=== PATIENT | male | born 1935 | race Caucasian/White ===

== ENCOUNTER → 2018-01-28 10:26 | Outpatient (CLI) | payer MEDICARE, SELFPAY ==
--- NOTE | 2018-01-28 10:29 | CT_ITS ---
STUDY: CT ABDOMEN AND PELVIS WITHOUT CONTRAST REASON FOR EXAM: Male, 82 years old. Hypertension RADIATION DOSAGE (If Supplied By Facility): CTDIvol = ( 8.08 ) mGy, DLP = ( 377.63 ) mGycm TECHNIQUE: Transaxial images were obtained from the dome of the diaphragm to the symphysis pubis without oral contrast, and without intravenous contrast. Sagittal and coronal images were reconstructed. Individualized dose optimization techniques were used for this CT. COMPARISON: None. FINDINGS: There is dependent atelectasis versus scar at bilateral lung bases. The visualized portions of the heart are within normal limits. Normal liver. Normal gallbladder and extrahepatic biliary system. Normal spleen. Normal pancreas. Normal bilateral adrenal glands. Normal right kidney. Calcifications within the left renal pelvis measuring up to 6 mm. No hydronephrosis. Normal ureters. Normal visualized stomach. Normal small intestine. Diverticular disease of the descending and sigmoid colonic segments without inflammation. The appendix is visualized and appears normal. Mild atherosclerotic calcification of the abdominal vasculature. Normal inferior vena cava. Normal retroperitoneum. Normal urinary bladder. Mild prostatomegaly. Normal abdominal wall. There are diffuse degenerative changes of the visualized lumbar spine. CT/Abdomen/Pelvis without Cont IMPRESSION: 1. Nonobstructing left renal calculi measuring up to 6 mm. 2. Descending and sigmoid colonic diverticulosis with no CT evidence of acute diverticulitis. Electronically Signed: Aidan Vogel MD at 11:37 EDT Tel , Service support ,
== END ==
PROVIDERS: Family Provider Family Medicine; PCP Nurse Practitioner Family; Visit Provider Urology
DX: N20.0 Calculus of kidney (principal)
CPT/HCPCS: 74176

== ENCOUNTER 2018-02-08 08:12 | Day surgery (SDC) | payer MEDICARE, SELFPAY ==
[2018-02-08 08:44] VITALS: BP 131/73; PULSE 65; RESP 18; TEMP 36.3; O2SAT 98; BMI 24.3
--- NOTE | 2018-02-08 09:50 | RAD_ITS ---
STUDY: X-RAY - ABDOMEN/PELVIS REASON FOR EXAM: Male, 82 years old. Pre-ESWL. TECHNIQUE: Two AP supine views of the abdomen and pelvis. COMPARISON: None. FINDINGS: Normal visualized lung bases. There is a moderate amount of colonic fecal material. Limited evaluation of the left kidney due to overlying fecal material. There are calcified phleboliths in the pelvis. There are diffuse degenerative changes of the visualized lumbar spine. RAD/Abdomen Single View IMPRESSION: Moderate amount of fecal material is seen in the colon. Limited assessment of the left kidney due to overlying fecal material. Electronically Signed: Sergey Canchola MD at 10:12 EDT Tel [phone], Service support ,
[2018-02-08] MEDS: Cefazolin 2 GM in 0.9% Normal Saline 100 ML IV (11:38)
--- NOTE | 2018-02-08 12:24 | PCM.OPRPT ---
Report of Operation Date of Procedure: 02/08/18 Pre-Operative Diagnosis: Left kidney stones Post-Operative Diagnosis: The same Surgery/Procedure Performed:: Left extracorporeal shockwave lithotripsy Description of Surgical Findings:: 82-year-old male taken back to the operating room after smooth induction of general anesthesia he was placed supine on the table the stone in the upper pole of the left kidney was identified under fluoroscopy we used the movement of fluoroscopy to identify the stone of the lower pole stone seen on CAT scan was not visible on fluoroscopy. We then positioned the stone in the F2 focal point of the lithotripter machine and a total of 3000 shockwaves was delivered to the stone at a rate of initially 90 and then up to 120 at the end of the treatment cycle the stone had broken up fairly successfully did not see anything significant more fragments. Decided not to leave a stent. Patient's anesthetic was reversed and will see him back in a few weeks with an x-ray. Type of Anesthesia:: General Drains: none - Admit VTE Documentation VTE Present on Admission: No VTE Mechan Device Prophylaxis: SCD's VTE Pharm Prophylaxis ordered?: No
--- NOTE | 2018-02-08 12:27 | DCINST_ITS ---
Discharge Diet: No Restrictions Discharge Activity: Return to Normal Activity, May Not Drive - for 2 days. Additional Activity Instructions:: Please be aware that pain medications may cause nausea. You should typically eat light foods as you take your pain medication. Pain medication may cause constipation, if this is a problem for you, please discuss with your doctor. Allergies/Adverse Reactions: Allergies propoxyphene [From Darvon] Allergy (Verified 02/03/18 14:24) Unknown lisinopril Adverse Reaction (Unknown, Verified 02/03/18 14:24) Cough Medications to take at Discharge Carvedilol [Coreg] 6.25 mg PO BID 01/02/16 Multivitamins,Therapeutic [Multivitamin] 1 tab PO DAILY 01/02/16 tramadol 50 mg tablet 50 mg PO Q8H PRN tab 05/13/17 amlodipine 10 mg tablet 5 mg PO QDAY tab 11/15/17 cyanocobalamin (vit B-12) 1,000 mcg capsule 1,000 mcg PO QDAY 11/15/17 Primary Care Physician: Benito Reynolds, [employer] [Primary Care Provider] - Test Results: Test results from this visit will be discussed in further detail at your follow- up appointment, if applicable. Please Follow Up With: Jus Mims MD
[2018-02-08 12:35] VITALS: BP 131/73; BP 138/66; PULSE 61; RESP 16; TEMP 36.2; O2SAT 96
[2018-02-08 12:45] VITALS: BP 131/73; BP 133/53; PULSE 57; RESP 14; O2SAT 94
[2018-02-08] MEDS: Ketorolac 15 MG/ML Vial IV (12:47)
[2018-02-08 13:04] VITALS: BP 123/63; BP 131/73; PULSE 56; RESP 14; TEMP 36.9; O2SAT 94
[2018-02-08 13:50] VITALS: BP 131/73
== END 2018-02-08 14:05 | disposition home or self-care (01) ==
LOC: SDC 08:14 → AC 08:14
PROVIDERS: Family Provider Nurse Practitioner Family; PCP Nurse Practitioner Family; Visit Provider Urology
PROC: (CPT 50590; principal; 2018-02-08 11:00)
DX: N20.0 Calculus of kidney (principal); K59.00 Constipation, unspecified; Z87.891 Personal history of nicotine dependence
CPT/HCPCS: 50590; 74018; J7120; J2405

== ENCOUNTER 2018-02-17 09:45 | Emergency (ER) | payer MEDICARE, SELFPAY ==
[2018-02-17 09:47] VITALS: BP 163/92; PULSE 99; RESP 18; TEMP 36.8; O2SAT 98; BMI 21.2
--- NOTE | 2018-02-17 10:15 | ED.VISSUMM ---
- ER Visit Summary Date of Service: 02/17/18 Chief Complaint: Left flank pain History of Present Illness: The patient is a 82 M history of recent kidney stone. Underwent lithotripsy and a left ureteral stent. He sees Dr. Mims from urology. Patient states that he had left flank pain beginning last night now with nausea vomiting. He does have some bloody urine. But states he is able to urinate. Denies any fever. Is still having bowel movements. Physical Examination: Male no acute distress. Vital signs are stable. He is afebrile. He does not look septic or toxic. H EENT exam shows mildly dry mucous membranes. Neck nontender. Lungs clear to auscultation. Heart regular rhythm no murmur. Abdomen is soft. Nondistended. Normal bowel sounds. No hernias or masses. No signs of obstruction. No pulsatile mass. Is mild tenderness to left upper and left lower quadrants. Right upper right lower quadrant unremarkable. There are no peritoneal signs. He is moving all 4 extremities. They are neurovascularly intact. Calves are nontender. Back he has mild left CVA tenderness. Neurologically is awake and alert with no focal motor deficits. Test Results: See normal. White count of 10. Hemoglobin 15. Electrolytes unremarkable. Gap of 10. Normal creatinine 1.1. UA 5-10 white cells. 100 red cells no bacteria no night rates. Sent for culture but is not to be started on any antibiotics at this time. KUB showed a left ureteral stent to be in good position otherwise was unremarkable. Emergency Department Course and Treatment:, Morphine and Zofran. Treatment Plan: Repeat exam patient is doing well at 1220. He is feeling much better after the medication. He and his are comfortable with him being discharged home. Disposition: Discharge Impression: Acute left flank pain secondary to ureteral stent. Nausea and vomiting Status post left ureteral calculi with lithotripsy and recent stent This note was generated with [employer] dictation software. It may contain incorrect words, spelling, and punctuation that were not noted in review of the chart prior to signing ED Disposition - Plan for ED Patient: Chief Complaint: Flank Pain Referrals: Benito Reynolds, [facility] [Primary Care Provider] -
[2018-02-17] MEDS: 0.9% Normal Saline 1,000 ML 1000 ML IV (10:36)
[2018-02-17] MEDS: Ondansetron 4 MG/2 ML Vial IV (10:37)
[2018-02-17] MEDS: Morphine 4 MG/ML Syringe 6 MG IV (10:37)
[2018-02-17 10:49] LABS: Bacteria 0 SEEN /hpf (None Seen); Mucous, Urine 0 SEEN /hpf (<or=2+); Squamous Epithelial Cells - UA 0 SEEN /hpf (0-5)
[2018-02-17 10:52] LABS: Color, Urine Red (Yellow); Glucose, Dipstick Normal (Normal); Ketone-Dipstick 50 mg/dl (Negative); Leukocyte Esterase-Dipstick 500 /ul (Negative); Nitrite-Dipstick Negative (Negative); Occult Blood-Urine 250 /ul (Negative); Protein-Dipstick 100 mg/dl (Negative); Specific Gravity, Urine 1.015 (1.002-1.030); Urine Bilirubin Dipstick Negative (Negative); Urine Clarity Cloudy (Clear); Urine Urobilinogen Normal (Normal)
[2018-02-17 10:58] LABS: Red Blood Cells-Urine > 100 SEEN /hpf (0-5)
[2018-02-17 10:59] LABS: White Blood Cells 5-10 SEEN /hpf (0-5)
--- NOTE | 2018-02-17 11:00 | RAD_ITS ---
STUDY: X-RAY - ABDOMEN/PELVIS REASON FOR EXAM: Male, 82 years old. recent left stent placed, pt. having left flank pain TECHNIQUE: Two AP supine views of the abdomen and pelvis. COMPARISON: None. FINDINGS: Normal visualized lung bases. There is a left ureter stent in good position. There is an unremarkable bowel gas pattern. There is no demonstrated free abdominal air. The visualized liver, spleen and kidneys are grossly normal in size and morphology. There are calcified phleboliths in the pelvis. Normal visualized osseous structures. RAD/Abdomen Single View IMPRESSION: There is a left ureter stent in good position. Electronically Signed: Jose Garcia MD at 11:19 EDT Tel , Service support ,
[2018-02-17 11:02] LABS: Absolute Lymphocyte Count 0.55 X10^3/ul (0.83-4.51); Absolute Neutrophil Count 9.2 X10^3/uL (2.0-7.7); BUN 12 mg/dL (7-18); Basophil# 0.01 X10^3/uL; Basophil% 0.1 % (0-1); Creatinine, Serum 1.11 mg/dL (0.70-1.30); Eosinophil# 0.04 X10^3/uL; Eosinophils% 0.4 % (0-5); Estimated Creatinine Clearance 51.67 ml/min; Glucose 142 mg/dL (74-106); Hematocrit 43.8 % (40-54); Hemoglobin 15.7 g/dl (13.0-16.5); Lymphocyte # 0.55 X10^3/ul (4.0); Lymphocyte % 5.2 % (19-41); Mean Corp Hgb Conc 35.8 g/gl (32-36); Mean Corpuscular Hgb 31.6 pg (27.0-32.0); Mean Corpuscular Volume 88.1 fL (80-94); Mean Platelet Vol. 9.4 fl (6.2-12.0); Monocyte# 0.82 X10^3/uL; Monocyte% 7.7 % (0-10); Neutrophil # 9.22 X10^3/uL (2.7-7.7); Neutrophil % 86.3 % (47-70); Platelet Count 163 K/mm3 (150-450); RBC Distribution Width CV 13.1 % (11.6-14.6); Red Blood Count 4.97 M/mm3 (4.6-6.2); White Blood Count 10.7 K/mm3 (4.4-11.0)
[2018-02-17 11:03] LABS: Anion Gap 10 (5-15); BUN/Creat Ratio 10.8 RATIO (10-20); Calcium,Total 9.3 mg/dL (8.5-10.1); Chloride 100 mmol/L (98-107); Differential Indicated SCAN CRITERIA MET; EST Glomerular Filtration Rate 67 mL/min (>60); Est Glom Filt Rate - Afr Amer 81 mL/min (>60); POSITIVE COUNT NO; POSITIVE DIFFERENTIAL YES; POSITIVE MORPHOLOGY NO; Potassium 3.9 mmol/L (3.5-5.1); Sodium Level 137 mmol/L (136-145)
--- NOTE | 2018-02-17 12:32 | ED.DEP ---
ED Disposition - Plan for ED Patient: Disposition: Home or Assisted Living Chief Complaint: Flank Pain Instructions: ED Stone Renal W Colic Referrals: Benito Reynolds, [employer] [Primary Care Provider] - 3-5 Days if not improving Additional Instructions: Money of fluids and rest. Continue your current medications. Return if intractable pain, fever or unable to urinate.
[2018-02-17 12:33] VITALS: BP 137/84; PULSE 98; RESP 16; O2SAT 95
== END 2018-02-17 12:52 | disposition home or self-care (01) ==
PROVIDERS: Emergency Provider Emergency Medicine; Family Provider Nurse Practitioner Family; PCP Nurse Practitioner Family
DX: R10.9 Unspecified abdominal pain (principal); R11.2 Nausea with vomiting, unspecified; Z87.442 Personal history of urinary calculi; Z98.890 Other specified postprocedural states; I10 Essential (primary) hypertension
CPT/HCPCS: 74018; 80048; 81001; 85025; 87086; 87088; 99284; J7030; J2405

== ENCOUNTER → 2018-02-28 12:54 | Outpatient (CLI) | payer MEDICARE, SELFPAY ==
--- NOTE | 2018-02-28 12:56 | RAD_ITS ---
STUDY: X-RAY - ABDOMEN/PELVIS REASON FOR EXAM: Male, 82 years old. Mid abdominal pain TECHNIQUE: Single AP view of the abdomen / pelvis. COMPARISON: 02/17/2018 FINDINGS: Previously identified left ureteral stent has been removed. There is an unremarkable bowel gas pattern. There is no demonstrated free abdominal air. The visualized liver, spleen and kidneys are grossly normal in size and morphology. Normal soft tissue structures. There are diffuse degenerative changes of the visualized lumbar spine. RAD/Abdomen Single View IMPRESSION: Previously identified left ureteral stent has been removed. No acute findings Electronically Signed: Ivan Espinosa DO at 12:00 EDT Tel , Service support ,
== END ==
PROVIDERS: Family Provider Nurse Practitioner Family; PCP Nurse Practitioner Family; Referring Provider Urology; Visit Provider Urology
DX: N20.0 Calculus of kidney (principal)
CPT/HCPCS: 74018

== ENCOUNTER → 2018-06-06 13:21 | Outpatient (CLI) | payer MEDICARE, SELFPAY ==
[2018-05-23 09:47] VITALS: BMI 21.9
--- NOTE | 2018-06-06 13:25 | RAD_ITS ---
STUDY: X-RAY - ABDOMEN/PELVIS REASON FOR EXAM: Male, 82 years old. Kidney calculus. Left-sided flank pain. TECHNIQUE: AP supine abdomen. COMPARISON: February 28, 2018. FINDINGS: There is an unremarkable bowel gas pattern. There is no demonstrated free abdominal air. The visualized liver, spleen and kidneys are grossly normal in size and morphology. Normal soft tissue structures. Degenerative changes of the lumbar spine. Calcifications in the inferior pelvis right greater than left probably compatible with phleboliths unchanged. RAD/Abdomen Single View IMPRESSION: Normal x-ray examination of the abdomen and pelvis. A left renal calculus is not identified. Electronically Signed: Avi Delgado MD at 7:57 EST , Service support ,
--- OUTSIDE RECORDS SUMMARY | 2018-08-08 17:42 | XMS RPT_ITS ---
:1935 Author Organization OHIP Support Name Relationship Address Phone JEFFREYHOLA Unavailable [address] + [place] [address] HOLA MURPHY Unavailable [address] + [place] [address] HOLA MURPHY Unavailable [address] + [place] [address] R Unavailable Unavailable Unavailable HOLA MURPHY Unavailable [address] + [place] [address] R Unavailable Unavailable Unavailable HOLA MURPHY Unavailable [address] + [place] [address] HOLA MURPHY Unavailable [address] + [place] [address] HOLA MURPHY Unavailable [address] + [place] [address] HOLA MURPHY Unavailable [address] + [place] [address] HOLA MURPHY Unavailable [address] + [place] [address] R Unavailable Unavailable Unavailable HOLA MURPHY Unavailable [address] + [place] [address] HOLA MURPHY Unavailable [address] + [place] [address] HOLA MURPHY Unavailable [address] + [place] [address] R Unavailable Unavailable Unavailable HOLA MURPHY Unavailable [address] + [place] [address] LEANN LAWRENCE Unavailable Unavailable + HOLA MURPHY Unavailable [address] + [place] [address] R Unavailable Unavailable Unavailable HOLA MURPHY Unavailable [address] + [place] [address] R Unavailable Unavailable Unavailable HOLA MURPHY Unavailable [address] + [place] [address] HOLA MURPHY Unavailable [address] + [place] [address] HOLA MURPHY Unavailable [address] + [place] [address] R Unavailable Unavailable Unavailable HOLA MURPHY Unavailable [address] + [place] [address] R Unavailable Unavailable Unavailable HOLA MURPHY Unavailable [address] + [place] [address] HOLA MURPHY Unavailable [address] + [place] [address] HOLA MURPHY Unavailable [address] + [place] [address] HOLA MURPHY Unavailable [address] + [place] [address] HOLA MURPHY Unavailable [address] + [place] [address] HOLA MURPHY Unavailable [address] + [place] [address] HOLA MURPHY Unavailable [address] + [place] [address] HOLA MURPHY Unavailable [address] + [place] [address] HOLA MURPHY Unavailable [address] + [place] [address] HOLA MURPHY Unavailable [address] + [place] [address] HOLA MURPHY Unavailable [address] + [place] [address] HOLA MURPHY Unavailable [address] + [place] [address] HOLA MURPHY Unavailable [address] + [place] [address] HOLA MURPHY Unavailable [address] + [place] [address] Care Team Providers Name Role Phone BENITO REYNOLDS CNP Primary Care Unavailable SHABBIR BENITO GARCÍA Attending Unavailable WASDEEDEE, ATEF Attending Unavailable SHABBIR BENITO GARCÍA Primary Care Unavailable WASEF, ATEF Attending Unavailable SHABBIR BENITO GARCÍA Primary Care Unavailable WASEF, ATEF Attending Unavailable SHABBIR BENITO GARCÍA Primary Care Unavailable WASEF, ATEF Attending Unavailable SHABBIR BENITO GARCÍA Primary Care Unavailable SHABBIR BENITO GARCÍA Attending Unavailable SHABBIR BENITO GARCÍA Primary Care Unavailable SHABBIR BENITO GARCÍA Attending Unavailable SHABBIR BENITO GARCÍA Primary Care Unavailable SHABBIR BENITO GARCÍA Attending Unavailable SHABBIR BENITO GARCÍA Primary Care Unavailable LAN JOHNSON, SUMI Waters Attending Unavailable SHABBIR BENITO GARCÍA Primary Care Unavailable SHABBIR BENITO GARCÍA Primary Care Unavailable JUS AGUIRRE MD Admitting Unavailable JUS AGUIRRE MD Attending Unavailable Madiha Acuna MD Attending Unavailable SHABBIR BENITO GARCÍA Primary Care Unavailable SHABBIR BENITO GARCÍA Attending Unavailable SHABBIR BENITO GARCÍA Primary Care Unavailable WASDEEDEE, ATEF Attending Unavailable SHABBIR BENITO GARCÍA Primary Care Unavailable Jewel English Attending Unavailable Benito Reynolds COGNOS ARCHITECT-C Referring Unavailable CarlaJus sutton Attending Unavailable CarlaJus sutton Referring Unavailable Benito Reynolds COGNOS ARCHITECT-C Primary Care Unavailable Eula Rivera Attending Unavailable Christ Mcneill Attending Unavailable Batool, Emily Referring Unavailable CarlaJus Attending Unavailable CarlaJus Referring Unavailable Batool, Emily Primary Care Unavailable Jus Aguirre Attending Unavailable CarlaLisbet suttonChon Referring Unavailable Benito Reynolds COGNOS ARCHITECT-C Primary Care Unavailable Benito Reynolds COGNOS ARCHITECT-C Primary Care Unavailable Kem Lopez Attending Unavailable Jus Aguirre Attending Unavailable Jus Aguirre Referring Unavailable Benito Reynolds COGNOS ARCHITECT-C Primary Care Unavailable PROBLEMS PROBLEMS DATE TYPE CONDITION / CODE ATTENDING STATUS SOURCE 06/06/2018 Unknown N20.0 - Calculus of Jus Aguirre Active [facility] / N20.0(ICD-10) [facility] Repository 11/17/2017 Unknown 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 ABDOMEN SINGLE VIEW Observed: 06/06/2018 Status: F Source: [facility] 1:24 PM [facility] REPOSITORY [facility] Imaging Services [address] [place] [address] Abdomen Single View MR#: [id number] Acct: [id number] Name: SHEILA MURPHY Rep #: [id number] : 1935 M 82 From: Avi eDlgado PCP: CHINO Arevalo Status: REG CLI Study: Abdomen Single View Date of Exam: 06/06/18 Exam# [id number] Ordering Dr: Jus Aguirre MD STUDY: X-RAY - ABDOMEN/PELVIS REASON FOR EXAM: Male, 82 years old. Kidney calculus. Left-sided flank pain. TECHNIQUE: AP supine abdomen. COMPARISON: February 28, 2018. FINDINGS: There is an unremarkable bowel gas pattern. There is no demonstrated free abdominal air. The visualized liver, spleen and kidneys are grossly normal in size and morphology. Normal soft tissue structures. Degenerative changes of the lumbar spine. Calcifications in the inferior pelvis right greater than left probably compatible with phleboliths unchanged. RAD/Abdomen Single View IMPRESSION: Normal x-ray examination of the abdomen and pelvis. A left renal calculus is not identified. Electronically Signed: Avi Delgado MD at 7:57 EST , Service support , CC: COGNOS ARCHITECT-C Benito Reynolds; Jus Aguirre MD Lead Presser: Signed XR ABDOMEN AP Observed: 03/07/2018 Status: F Source: [facility] 3:11 PM [facility] REPOSIT[facility]IGINAL XR ABDOMEN AP CLINICAL STATEMENT: calculus of kidney COMPARISON: CT 02/19/2018 FINDINGS:LEFT double-J stent has been removed since the CT examination. There are multiple phleboliths in the pelvis. A large amount of stool completely obscures the RIGHT renal contours. The LEFT kidne y demonstrates a punctate inferior pole renal calculus. Evaluation of the anticipated path of both ureters is compromised by large amounts of stool . There is a punctate density overlying the inferior a spect of the RIGHT sacrum which is likely stool. There are diffuse degenerative changes present throughout the spine. IMPRESSION:Punctate LEFT intrarenal calculus. Evaluation for ureteral calculus is minus. Interpreted By: Seema Reed MD Preliminary Report By: Seema Reed MD Electronically Signed By: Seema Reed MD Dictated Date: 03/08/2018 9:57:58 AM Prelim Date: 03/08/2018 9:57:58 AM Sign Date: 03/08/2018 10:08:22 AM ABDOMEN SINGLE VIEW Observed: 02/28/2018 Status: F Source: [place] 12:57 PM [facility] REPOSITORY [facility] Imaging Services [address] [place] [address] Abdomen Single View MR#: [id number] Acct: [id number] Name: SHEILA MURPHY Rep #: [id number] : 1935 M 82 From: Ivan Espinosa DO PCP: CHINO Arevalo Status: REG CLI Study: Abdomen Single View Date of Exam: 02/28/18 Exam# [id number] Ordering Dr: Jus Aguirre MD STUDY: X-RAY - ABDOMEN/PELVIS REASON FOR EXAM: Male, 82 years old. Mid abdominal pain TECHNIQUE: Single AP view of the abdomen / pelvis. COMPARISON: 02/17/2018 FINDINGS: Previously identified left ureteral stent has been removed. There is an unremarkable bowel gas pattern. There is no demonstrated free abdominal air. The visualized liver, spleen and kidneys are grossly normal in size and morphology. Normal soft tissue structures. There are diffuse degenerative changes of the visualized lumbar spine. RAD/Abdomen Single View IMPRESSION: Previously identified left ureteral stent has been removed. No acute findings Electronically Signed: Ivan Espinosa DO at 12:00 EDT Tel , Service support , CC: CHINO Reynolds; Jus Aguirre MD Lead Presser: Signed UA Collected: 02/19/2018 Status: F Source: [facility] 12:23 PM [facility] REPOSITORY TYPE CODE TESTS RESULT OUT OF RANGE REFERENCE UNITS LAB SPCUA(DAVON NC) UA Specimen Type Clean Catch LAB CLRUA(DAVON NC) UA Color Unknown Brown LAB APPUA(DAVON Clear NC) UA Appear Unknown Turbid LAB SGUA(LOIN C) UA Spec Grav 1.020 LAB GLUA(LOIN Negative mg/dL C) UA Glucose Negative LAB BILUA(DAVON Negative NC) UA Bili Negative LAB KETUA(DAVON Negative mg/dL NC) UA Ketones Unknown 5 LAB BLDUA(DAVON Negative NC) UA Blood Unknown Large LAB PHUA(LOIN C) UA pH 6.0 LAB PROUA(DAVON Negative mg/dL NC) UA Protein Unknown 300 LAB UROUA(DAVON E.U./dL NC) UA Urobilinogen 0.2 LAB NITUA(DAVON Negative NC) UA Nitrite Negative LAB LEUUA(DAVON Negative NC) UA Leuk Est Unknown Moderate Performed By: #### UA, UAMICAO #### [id number] [place], [place] [address] .URINALYSIS MICROSCOPIC Collected: 02/19/2018 Status: F Source: JAYASHREE (AO) 12:23 PM [facility] [place] REPOSITORY TYPE CODE TESTS RESULT OUT OF RANGE REFERENCE UNITS LAB WBCUA(LOIN None Seen /hpf C) Unknown UA WBC 15-25 LAB RBCUA(LOIN None Seen /hpf C) Unknown UA RBC LOADED LAB EPIUA(LOIN None Seen /hpf C) Unknown UA Squam Epithelial 0-5 LAB MUCUA(LOIN /hpf C) UA Mucous 1+ LAB AMOUA(LOIN /hpf C) UA Amorphus Trace Performed By: #### UA, UAMICAO #### Jayashree [address] [address] [address] ABDOMEN/PELVIS W/O Observed: 02/19/2018 Status: F Source: JAYASHREE CONTRAST 12:03 PM [facility] [place] REPOSITORY ORIGINAL CT ABDOMEN/PELVIS WITHOUT CONTRAST: Multiplanar coronal, sagittal, and axial reconstructions were reviewed on a separate workstation This exam was performed according to our departmental dose optimization program, and includes the following measures where applicable: automated exposure control, adjustment of the mAs and/or kVp accord ing to patient size and/or exam, and an iterative reconstruction algorithm. CLINICAL STATEMENT: abdominal pain, patient has no recollection medical history, unable to get a history, dysuria COMPARISON: CT abdomen/pelvis 02/13/2018 FINDINGS: There are emphysematous changes of the bilateral lung bases with minimal subsegmental atelectasis versus scarring in the RIGHT middle lobe and lingula. No pleural or pericardial effusion is visualized. The unenhanced liver, pancreas, gallbladder, and adrenal glands are unremarkable. There are calcifications within the spleen, likely due to remote granulomatous disease. The kidneys are symmetric in size. There has been interval placement of a LEFT ureteral stent. There is a calcification at the level of L4 adjacent to the ureteral stent correlating with findings on 05/2017 CT exam, likely representing residual ureteral calculus. This calculus is difficult to measure due to adjacent ureter measures approximately 3 mm. There is also a nonobstructing LEFT renal calcu matilde. Previously seen LEFT hydronephrosis has resolved. No hydronephrosis is seen on the RIGHT. There is mild fat stranding of the distal LEFT ureter just distal to the LEFT common iliac bifurcation hitesh cent to the LEFT internal iliac artery (image 65 of series 2). No radiopaque calculus is seen in the bladder. Air is present within the bladder, likely due to instrumentation. The prostate is enlarged with dystrophic calcifications, measuring up to 5.5 cm in the transverse diameter. The small bowel and colon are normal in caliber. There is diverticulosis of the sigmoid colon. Inflammatory changes adjacent to the sigmoid colon are likely secondary to the ureter as no discrete inflam ed diverticulum is seen. The appendix is normal. No free intraperitoneal air or fluid is identified. There is a tiny fat-containing umbilical hernia. The abdominal aorta is normal in caliber with extensive calcified atherosclerosis. No acute or suspicious osseous abnormality is identified. There are degenerative changes of the lower lumbar spine. IMPRESSION: Interval placement of a LEFT ureteral stent with resolution of hydronephrosis. Residual LEFT ureteral calculus at the level of L4 is unchanged in position from 02/13/2018 CT exam. LEFT distal ureteral inflammatory changes and air in the bladder likely secondary to recent LEFT ureteral stent placement. Nonobstructing LEFT nephrolithiasis. I have personally reviewed the images of this examination and agree with the resident's findings and interpretation. Interpreted By: Libertad Rodriguez MD Preliminary Report By: Lilly Collier DO Electronically Signed By: Libertad Rodriguez MD Dictated Date: 02/19/2018 12:54:52 PM Prelim Date: 02/19/2018 1:19:18 PM Sign Date: 02/19/2018 6:19:36 PM CBC Collected: 02/19/2018 Status: F Source: [facility] 11:19 AM [facility] REPOSITORY TYPE CODE TESTS RESULT OUT OF REFERENCE UNITS RANGE LAB WBC(LOINC) 4.60-10.80 10 3/mcL High WBC 12.40 LAB RBCCT(LOINC 4.04-6.13 10 6/mcL ) RBC 4.62 LAB HGB(LOINC) 14.0-18.0 G/dL Hgb 14.3 LAB HCT(LOINC) 42.0-52.0 % Low Hct 41.4 LAB MCV(LOINC) 80.0-94.0 fL MCV 89.6 LAB MCH(LOINC) 27.0-31.2 pg MCH 31.0 LAB MCHC(LOINC) 31.8-35.4 G/dL MCHC 34.6 LAB RDW(LOINC) 11.5-14.5 % RDW 13.5 LAB PLT(LOINC) 130-400 10 3/mcL Platelet 205 LAB MPV(LOINC) 7.4-10.4 fL MPV 7.4 Performed By: #### CBC, ADIFF, ANEU #### [address] [address] #### BMP, GFR #### [address] [address] .AUTO DIFF Collected: 02/19/2018 Status: F Source: [facility] 11:19 AM [facility] REPOSITORY TYPE CODE TESTS RESULT OUT OF REFERENCE UNITS RANGE LAB OSIRIS(LOINC) 37.0-80.0 % High Neutrophil % 87.2 LAB LYM(LOINC) 10.0-50.0 % Low Lymphocyte % 6.4 LAB MON(LOINC) 1.7-13.0 % Monocyte % 5.8 LAB EO(LOINC) 0.0-7.0 % Eosinophil % 0.3 LAB BAS(LOINC) 0.0-2.5 % Basophil % 0.3 LAB ABLYM(LOIN 0.77-3.85 10 3/mcL C) Lymphocyte, 0.80 Absolute LAB TEO(LOINC 0.15-1.00 10 3/mcL ) Monocyte, 0.70 Absolute LAB AEOS(LOINC 0.00-0.40 10 3/mcL ) Eosinophil, 0.00 Absolute LAB ABAS(LOINC 0.00-0.19 10 3/mcL ) Basophil, 0.00 Absolute Performed By: #### CBC, ADIFF, ANEU #### [address] [address] #### BMP, GFR #### [address] [address] .NEUABS Collected: 02/19/2018 Status: F Source: [facility] 11:19 AM [facility] REPOSITORY TYPE CODE TESTS RESULT OUT OF REFERENCE UNITS RANGE LAB ANEU(LOINC) 2.85-6.16 10 3/mcL High Neutrophil, 10.80 Absolute Performed By: #### CBC, ADIFF, ANEU #### [address] [address] #### BMP, GFR #### [place] [address] BMP Collected: 02/19/2018 Status: F Source: [facility] 11:19 AM [facility] REPOSITORY TYPE CODE TESTS RESULT OUT OF REFERENCE UNITS RANGE LAB GLU(LOINC) 83-110 mg/dL Glucose High Level 145 LAB NA(LOINC) 136-145 mmol/L Sodium Level 138 LAB K(LOINC) 3.5-5.1 mmol/L Potassium Level 3.6 LAB CL(LOINC) 98-107 mmol/L Chloride 101 LAB CO2(LOINC) 23-31 mmol/L CO2 27 LAB EBAL(LOINC mEq/L ) Electrolyte Balance 10.0 LAB BUN(LOINC) 7-18 mg/dL BUN 15 LAB CRE(LOINC) 0.70-1.30 mg/dL Creatinine High Lvl (s) 1.39 LAB BC(LOINC) 7-27 ratio BUN/Creatinine 11 Ratio LAB CA(LOINC) 8.4-10.2 mg/dL Calcium Lvl 9.0 Performed By: #### CBC, ADIFF, ANEU #### [address] [address] #### BMP, GFR #### [place] [address] .GFR Collected: 02/19/2018 Status: F Source: [facility] 11:19 [facility] REPOSITORY TYPE CODE TESTS RESULT OUT OF REFERENCE UNITS RANGE LAB GFRAA(LOINC ml/min/1.73 ) sqm GFR 59 Irish Result Comment: GFR Population mean for , Non- Americans Ages 20-29 = 116 mL/min/1.73 sq.m. Ages 30-39 = 107 mL/min/1.73 sq.m. Ages 40-49 = 99 mL/min/1.73 sq.m. Ages 50-59 = 93 mL/min/1.73 sq.m. Ages 60-69 = 85 mL/min/1.73 sq.m. Ages 70+ = 75 mL/min/1.73 sq.m. Chronic Kidney Disease: Less than 60 mL/min/1.73 square meters End Stage Renal Disease: Less than 15 mL/min/1.73 square meters LAB GFRNO(LOINC) ml/min/1.73sqm GFR Non- 49 Result Comment: GFR Population mean for , Non- Americans Ages 20-29 = 116 mL/min/1.73 sq.m. Ages 30-39 = 107 mL/min/1.73 sq.m. Ages 40-49 = 99 mL/min/1.73 sq.m. Ages 50-59 = 93 mL/min/1.73 sq.m. Ages 60-69 = 85 mL/min/1.73 sq.m. Ages 70+ = 75 mL/min/1.73 sq.m. Chronic Kidney Disease: Less than 60 mL/min/1.73 square meters End Stage Renal Disease: Less than 15 mL/min/1.73 square meters Performed By: #### CBC, ADIFF, ANEU #### [address]ree [address] [place], [place] [address] #### BMP, GFR #### [address] [address] DISCHARGE INSTRUCTION Observed: 02/17/2018 Status: F Source: [place] 4:09 PM [facility] REPOSITORY [facility] Medical Records Department [address] [place] [address] Discharge Instruction 02/17/18 1232 MR#: [id number] Acct: [id number] Name: SHEILA MURPHY Rep #: [id number] : 1935 82 From: Kem Lopez MD PCP: CHINO Arevalo Status: DEP ER ED Disposition - Plan for ED Patient: Disposition: Home or Assisted Living Chief Complaint: Flank Pain Instructions: ED Stone Renal W Colic Referrals: Benito Reynolds NP-C [Primary Care Provider] - 3- 5 Days if not improving Additional Instructions: Money of fluids and rest. Continue your current medications. Return if intractable pain, fever or unable to urinate. What to do if you have Problems For any increased pain, shortness of breath, bleeding, nausea or vomiting, chest pain, or any unexpected problems, contact your Primary Care Provider. Call [facility] ([phone]) or report to the closest Emergency Room. Call 911 if necessary. 02/17/18 3017 <Electronically signed by Kem Lopez MD> Date Kem Lopez MD Cosigner Signature (If Indicated): Date CC: COGNOS ARCHITECTJoanna Reynolds EMERGENCY DEPARTMENT Observed: 02/17/2018 Status: F Source: [place] SUMMARY 4:09 PM [facility] REPOSITORY [facility] Medical Records Department [address] [place] [address] Emergency Department Summary 02/17/18 1015 MR#: [id number] Acct: [id number] Name: SHEILA MURPHY Rep #: [id number] : 1935 82 From: Kem Lopez MD PCP: CHINO Arevalo Status: DEP ER - ER Visit Summary Date of Service: 02/17/18 Chief Complaint: Left flank pain History of Present Illness: The patient is a 82 M history of recent kidney stone. Underwent lithotripsy and a left ureteral stent. He sees Dr. Aguirre from urology. Patient states that he had left flank pain beginning last night now with nausea vomiting. He does have some bloody urine. But states he is able to urinate. Denies any fever. Is still having bowel movements. Physical Examination: Male no acute distress. Vital signs are stable. He is afebrile. He does not look septic or toxic. H EENT exam shows mildly dry mucous membranes. Neck nontender. Lungs clear to auscultation. Heart regular rhythm no murmur. Abdomen is soft. Nondistended. Normal bowel sounds. No hernias or masses. No signs of obstruction. No pulsatile mass. Is mild tenderness to left upper and left lower quadrants. Right upper right lower quadrant unremarkable. There are no peritoneal signs. He is moving all 4 extremities. They are neurovascularly intact. Calves are nontender. Back he has mild left CVA tenderness. Neurologically is awake and alert with no focal motor deficits. Test Results: See normal. White count of 10. Hemoglobin 15. Electrolytes unremarkable. Gap of 10. Normal creatinine 1.1. UA 5-10 white cells. 100 red cells no bacteria no night rates. Sent for culture but is not to be started on any antibiotics at this time. KUB showed a left ureteral stent to be in good position otherwise was unremarkable. Emergency Department Course and Treatment:, Morphine and Zofran. Treatment Plan: Repeat exam patient is doing well at 1220. He is feeling much better after the medication. He and his are comfortable with him being discharged home. Disposition: Discharge Impression: Acute left flank pain secondary to ureteral stent. Nausea and vomiting Status post left ureteral calculi with lithotripsy and recent stent This note was generated with [employer] dictation software. It may contain incorrect words, spelling, and punctuation that were not noted in review of the chart prior to signing ED Disposition - Plan for ED Patient: Chief Complaint: Flank Pain Referrals: Benito Reynolds, COGNOS ARCHITECT-C [Primary Care Provider] - What to do if you have Problems For any increased pain, shortness of breath, bleeding, nausea or vomiting, chest pain, or any unexpected problems, contact your Primary Care Provider. Call [facility] ([phone]) or report to the closest Emergency Room. Call 911 if necessary. 02/17/18 2602 <Electronically signed by Kem Lopez MD> Date Kem Lopez MD Cosigner Signature (If Indicated): Date CC: COGNOS ARCHITECT-C Benito Reynolds BASIC METABOLIC Collected: 02/17/2018 Status: F Source: [facility] PROFILE (BMP) 10:35 AM [facility] REPOSITORY TYPE CODE TESTS RESULT OUT OF RANGE REFERENCE UNITS LAB L501.0100 74-106 mg/dL High GLU 142 Result Comment: Fasting Glucose result greater than or equal to 126 mg/dL suggests DIABETES MELLITUS per A.D.A. criteria. Please note revised GLUCOSE reference range effective 2017. LAB L501.1000 7-18 mg/dL Normal BUN 12 LAB L501.1100 0.70-1.30 mg/dL Normal CREAT,SERUM 1.11 Result Comment: The validity of the calculated GFR AND GFRAA in patients over 70 years has not been determined. Clinical correlation is essential. LAB L501.1110 >60 mL/min Normal EST GFR 67 Result Comment: Non- GFR Calc LAB L501.1115 >60 mL/min Normal EST GFR - AA 81 Result Comment: GFR Calc LAB L501.1255 ml/min Normal Estimated CRCL 51.67 LAB L501.1300 10-20 RATIO Normal BUN/CRE 10.8 LAB L501.2200 8.5-10 mg/dL Normal .1 CA 9.3 LAB L501.5300 136-14 mmol/L Normal 5 NA 137 LAB L501.5600 3.5-5. mmol/L Normal 1 K 3.9 LAB L501.5900 98-107 mmol/L Normal CL 100 LAB L501.6100 21.0-3 mmol/L Normal 2.0 CO2 27.0 LAB L501.6200 5-15 Normal GAP 10 Performed By: #### L500.2500 #### [facility] [address] [place], [place], [id number] CBC W/DIFF, AUTOMATED Collected: 02/17/2018 Status: F Source: [place] 10:35 AM [facility] REPOSITORY TYPE CODE TESTS RESULT OUT OF RANGE REFERENCE UNITS LAB L100.1000 4.4-11.0 K/mm3 Normal WBC 10.7 LAB L100.1200 4.6-6.2 M/mm3 Normal RBC 4.97 LAB L100.1300 13.0-16.5 g/dl Normal HGB 15.7 LAB L100.1400 40-54 % Normal HCT 43.8 LAB L100.1500 80-94 fL Normal MCV 88.1 LAB L100.1600 27.0-32.0 pg Normal MCH 31.6 LAB L100.1700 32-36 g/gl Normal MCHC 35.8 LAB L100.1810 11.6-14.6 % Normal RDW CV 13.1 LAB L100.1820 35.1-43.9 fl Normal RDW SD 42.0 LAB L100.1900 150-450 K/mm3 Normal PLT 163 LAB L100.2000 6.2-12.0 fl Normal MPV 9.4 LAB L100.2100 47-70 % High NEUT% 86.3 LAB L100.2200 19-41 % Low LY% 5.2 LAB L100.2300 0-10 % Normal MONO% 7.7 LAB L100.2400 0-5 % Normal EO% 0.4 LAB L100.2500 0-1 % Normal BASO% 0.1 LAB L100.2550 0.0-0.9 % Normal IM GRAN % 0.300 Result Comment: IG% - Immature Granulocytes (promyelocytes, myelocytes and metamyelocytes) > 1% indicates that a LEFT SHIFT is Present. LAB L100.2620 2.0-7.7 X10 3/uL High Absolute Neut 9.2 LAB L100.2720 0.83-4.51 X10 3/ul Low Absolute Lymph 0.55 LAB L100.4500 Normal SMEAR COMMENT COMMENT Result Comment: SLIDE SCANNED - LYMPHOPENIA NOTED. Performed By: #### L100.0100 #### [facility] [address] [facility] [place], [address] ABDOMEN SINGLE VIEW Observed: 02/17/2018 Status: F Source: [place] 10:12 AM [facility] REPOSITORY [facility] Imaging Services [address] [place] [address] Abdomen Single View MR#: [id number] Acct: [id number] Name: SHEILA MURPHY Rep #: [id number] : 1935 M 82 From: Jose Garcia MD PCP: Benito Reynolds COGNOS ARCHITECT-Sima Status: REG ER Study: Abdomen Single View Date of Exam: 02/17/18 Exam# [id number] Ordering Dr: Kem Lopez MD STUDY: X-RAY - ABDOMEN/PELVIS REASON FOR EXAM: Male, 82 years old. recent left stent placed, pt. having left flank pain TECHNIQUE: Two AP supine views of the abdomen and pelvis. COMPARISON: None. FINDINGS: Normal visualized lung bases. There is a left ureter stent in good position. There is an unremarkable bowel gas pattern. There is no demonstrated free abdominal air. The visualized liver, spleen and kidneys are grossly normal in size and morphology. There are calcified phleboliths in the pelvis. Normal visualized osseous structures. RAD/Abdomen Single View IMPRESSION: There is a left ureter stent in good position. Electronically Signed: Jose Garcia MD at 11:19 EDT Tel , Service support , CC: CHINO Reynolds; Kem Lopez MD Lead Presser: Signed URINALYSIS, COMPLETE Collected: 02/17/2018 Status: F Source: NELA 10:05 AM [facility] REPOSITORY Order Comment: Order Date: 02/17/18 COLOR OF URINE MAY AFFECT DIPSTICK RESULTS. How was Urine Obtained? CLEAN CATCH TYPE CODE TESTS RESULT OUT OF RANGE REFERENCE UNITS LAB L400.3000 Yellow COLOR Normal Red LAB L400.3050 Clear Normal CLARITY Cloudy LAB L400.3200 Normal mg/dl Normal GLUCOSE, UR Normal LAB L400.3300 Negative mg/dL Normal BILIRUBIN URINE Negative LAB L400.3400 Negative mg/dl High 50 KETONE UR LAB L400.3465 1.002-1.030 Normal SP.GR. DIPSTX 1.015 LAB L400.3550 5.0 - 8.0 pH UR Normal 6.0 LAB L400.3600 Negative mg/dl High PROT DIPSTX 100 LAB L400.3700 Normal mg/dl Normal UROBILI Normal LAB L400.3750 Negative Normal NITRITE UR Negative LAB L400.3780 Negative /ul High OCCULT BLOOD-UR 250 LAB L400.3800 Negative /ul High LEUK ESTERASE 500 LAB L400.4050 0-5 /hpf WBC Normal 5-10 SEEN LAB L400.4100 0-5 /hpf > Normal RBC-UA 100 SEEN LAB L400.4150 0-5 /hpf SQUAM 0 Normal EPI SEEN LAB L400.4300 None Seen /hpf 0 Normal BACTERIA SEEN LAB L400.4350 <or=2+ /hpf 0 Normal MUCUS, URINE SEEN Performed By: #### L400.0001 #### [facility] [address] [place], [address] Observed: 02/17/2018 Status: F Source: NELA CULTURE, URINE 10:05 [facility] REPOSITORY Order Date: 02/17/18 Urine Culture ORGANISM 1: Presumptive E. coli [place] Count 1000-10,000 ORGANISM 2: Mixed Gram Positive Organisms [place] Count >100,000 MIX CULTURE Mixed contaminants. Submit a new specimen if indicated. Performed By: #### M100.0650 #### [facility] [address] [place], [address] XR FLUORO < 1HR Observed: 02/14/2018 Status: F Source: [place] TIME 7:44 AM [facility] REPOSITORY ORIGINAL Images acquired, not reported on this accession number. CT ABDOMEN/PELVIS W/O Observed: 02/13/2018 Status: F Source: [place] CONTRAST 9:17 AM [facility] [place] REPOSITORY ORIGINAL CT ABDOMEN/PELVIS W/O CONTRAST CLINICAL STATEMENT: LEFT flank pain. COMPARISON: CT abdomen and pelvis 11/02/2017 TECHNIQUE: Axial images were obtained from the lung bases through the pubic symphysis. Coronal and sagittal reformatted images were generated from the axial dataset. This exam was performed according to our departmental dose optimization program, and includes the following measures where applicable: automated exposure control, adjustment of the mAs and/or kVp according to patient size and/or exam, and an iterative reconstruction algorithm. FINDINGS: The visualized lungs are clear and emphysematous. The unenhanced liver, spleen, pancreas and adrenal glands are grossly unchanged in appearance. The gallbladder is present. The RIGHT kidney and ureter are grossly within normal limits. There is moderate LEFT hydronephrosis resulting from a 5 mm obstructing calculus within the mid ureter at about the level of the L4 vertebra l body. There is associated perinephric and periureteral stranding. There are additional nonobstructing LEFT renal calculi. The colon and small bowel are normal in caliber. There is colonic diverticulosis without CT evidence of acute diverticulitis. The appendix is grossly within normal limits. No free air, ascites or pathol ogically enlarged lymph nodes. The aorta is atherosclerotic without aneurysmal dilation. The bladder is grossly within normal limits. The prostate is enlarged and contains coarse calcifications. Numerous phleboliths are seen within the pelvis. No acute osseous abnormality. Degenerative changes are seen within the spine. IMPRESSION: 1. Moderate LEFT hydroureteronephrosis resulting from a 5 mm obstructing calculus within the mid ureter at about the level of the L4 vertebral body. 2. Additional nonobstructing LEFT renal calculi. Interpreted By: Libertad Rodriguez MD Preliminary Report By: Libertad Rodriguez MD Electronically Signed By: Libertad Rodriguez MD Dictated Date: 02/13/2018 9:20:15 AM Prelim Date: 02/13/2018 9:27:13 AM Sign Date: 02/13/2018 8:37:01 PM CBC Collected: 02/13/2018 Status: F Source: [facility] 8:56 AM [facility] REPOSITORY TYPE CODE TESTS RESULT OUT OF REFERENCE UNITS RANGE LAB WBC(LOINC) 4.60-10.80 10 3/mcL WBC 9.10 LAB RBCCT(LOINC 4.04-6.13 10 6/mcL ) RBC 5.62 LAB HGB(LOINC) 14.0-18.0 G/dL Hgb 17.2 LAB HCT(LOINC) 42.0-52.0 % Hct 50.8 LAB MCV(LOINC) 80.0-94.0 fL MCV 90.5 LAB MCH(LOINC) 27.0-31.2 pg MCH 30.7 LAB MCHC(LOINC) 31.8-35.4 G/dL MCHC 33.9 LAB RDW(LOINC) 11.5-14.5 % RDW 13.6 LAB PLT(LOINC) 130-400 10 3/mcL Platelet 195 LAB MPV(LOINC) 7.4-10.4 fL MPV 7.9 Performed By: #### CBC, ADNITA, ADEEL #### [place] [address] .AUTO DIFF Collected: 02/13/2018 Status: F Source: [facility] 8:56 AM [facility] REPOSITORY TYPE CODE TESTS RESULT OUT OF REFERENCE UNITS RANGE LAB OSIRIS(LOINC) 37.0-80.0 % High Neutrophil % 85.0 LAB LYM(LOINC) 10.0-50.0 % Low Lymphocyte % 8.7 LAB MON(LOINC) 1.7-13.0 % Monocyte % 4.8 LAB EO(LOINC) 0.0-7.0 % Eosinophil % 1.1 LAB BAS(LOINC) 0.0-2.5 % Basophil % 0.4 LAB ABLYM(LOIN 0.77-3.85 10 3/mcL C) Lymphocyte, 0.80 Absolute LAB TEO(LOINC 0.15-1.00 10 3/mcL ) Monocyte, 0.40 Absolute LAB AEOS(LOINC 0.00-0.40 10 3/mcL ) Eosinophil, 0.10 Absolute LAB ABAS(LOINC 0.00-0.19 10 3/mcL ) Basophil, 0.00 Absolute Performed By: #### CBCSHERMAN, ANEU #### [address] [address] .NEUABS Collected: 02/13/2018 Status: F Source: [facility] 8:56 AM [facility] REPOSITORY TYPE CODE TESTS RESULT OUT OF REFERENCE UNITS RANGE LAB ANEU(LOINC) 2.85-6.16 10 3/mcL High Neutrophil, 7.70 Absolute Performed By: #### CBC, ADIFF, ANEU #### [address] [address] UA Collected: 02/13/2018 Status: F Source: [facility] 8:56 AM [facility] REPOSITORY TYPE CODE TESTS RESULT OUT OF RANGE REFERENCE UNITS LAB SPCUA(DAVON NC) UA Specimen Type Clean Catch LAB CLRUA(DAVON NC) UA Color Yellow LAB APPUA(DAVON Clear NC) UA Appear Clear LAB SGUA(LOIN C) UA Spec Unknown Grav 1.005 LAB GLUA(LOIN Negative mg/dL C) UA Glucose Negative LAB BILUA(DAVON Negative NC) UA Bili Negative LAB KETUA(DAVON Negative mg/dL NC) UA Ketones Negative LAB BLDUA(DAVON Negative NC) UA Blood Unknown Small LAB PHUA(LOIN C) UA pH 8.0 LAB PROUA(DAVON Negative mg/dL NC) UA Protein Negative LAB UROUA(DAVON E.U./dL NC) UA Urobilinogen 0.2 LAB NITUA(DAVON Negative NC) UA Nitrite Negative LAB LEUUA(DAVON Negative NC) UA Leuk Est Negative Performed By: #### UA, UAMICAO #### [facility] [address] [place], [place] [address] .URINALYSIS MICROSCOPIC Collected: 02/13/2018 Status: F [facility] AM [facility] [place] REPOSITORY TYPE CODE TESTS RESULT OUT OF RANGE REFERENCE UNITS LAB WBCUA(LOIN None Seen /hpf C) UA WBC None Seen LAB RBCUA(LOIN None Seen /hpf C) Unknown UA RBC 5-10 LAB EPIUA(LOIN None Seen /hpf C) UA Squam Epithelial None Seen Performed By: #### UA, UAMICAO #### [facility] [address] [place], [place] [address] BMP Collected: 02/13/2018 Status: F Source: [facility] 8:56 AM [facility] REPOSITORY TYPE CODE TESTS RESULT OUT OF REFERENCE UNITS RANGE LAB GLU(LOINC) 83-110 mg/dL Glucose High Level 161 LAB NA(LOINC) 136-145 mmol/L Sodium Level 141 LAB K(LOINC) 3.5-5.1 mmol/L Potassium Level 4.1 LAB CL(LOINC) 98-107 mmol/L Chloride 100 LAB CO2(LOINC) 23-31 mmol/L CO2 High 32 LAB EBAL(LOINC mEq/L ) Electrolyte Balance 9.0 LAB BUN(LOINC) 7-18 mg/dL BUN 15 LAB CRE(LOINC) 0.70-1.30 mg/dL Creatinine High Lvl (s) 1.61 LAB BC(LOINC) 7-27 ratio BUN/Creatinine 9 Ratio LAB CA(LOINC) 8.4-10.2 mg/dL Calcium Lvl 9.4 Performed By: #### BMP, GFR #### [address] [address] .GFR Collected: 02/13/2018 Status: F Source: [facility] 8:56 AM [facility] REPOSITORY TYPE CODE TESTS RESULT OUT OF REFERENCE UNITS RANGE LAB GFRAA(LOINC ml/min/1.73 ) sqm GFR 50 Irish Result Comment: GFR Population mean for , Non- Americans Ages 20-29 = 116 mL/min/1.73 sq.m. Ages 30-39 = 107 mL/min/1.73 sq.m. Ages 40-49 = 99 mL/min/1.73 sq.m. Ages 50-59 = 93 mL/min/1.73 sq.m. Ages 60-69 = 85 mL/min/1.73 sq.m. Ages 70+ = 75 mL/min/1.73 sq.m. Chronic Kidney Disease: Less than 60 mL/min/1.73 square meters End Stage Renal Disease: Less than 15 mL/min/1.73 square meters LAB GFRNO(LOINC) ml/min/1.73sqm GFR Non- 41 Result Comment: GFR Population mean for , Non- Americans Ages 20-29 = 116 mL/min/1.73 sq.m. Ages 30-39 = 107 mL/min/1.73 sq.m. Ages 40-49 = 99 mL/min/1.73 sq.m. Ages 50-59 = 93 mL/min/1.73 sq.m. Ages 60-69 = 85 mL/min/1.73 sq.m. Ages 70+ = 75 mL/min/1.73 sq.m. Chronic Kidney Disease: Less than 60 mL/min/1.73 square meters End Stage Renal Disease: Less than 15 mL/min/1.73 square meters Performed By: #### BMP, GFR #### [place] [address] DISCHARGE INSTRUCTION Observed: 02/08/2018 Status: F Source: [place] 12:27 PM [facility] REPOSITORY [facility] Medical Records Department [address] [place] [address] Instructions for Home/Discharge Instructions 02/08/18 1227 MR#: [id number] Acct: [id number] Name: JEFFREYSHEILA Dillan Rep #: [id number] : 1935 82 From: Jus Aguirre MD PCP: CHINO Arevalo Status: REG [facility] Discharge Diet: No Restrictions Discharge Activity: Return to Normal Activity, May Not Drive - for 2 days. Additional Activity Instructions:: Please be aware that pain medications may cause nausea. You should typically eat light foods as you take your pain medication. Pain medication may cause constipation, if this is a problem for you, please discuss with your doctor. Allergies/Adverse Reactions: Allergies propoxyphene [From Darvon] Allergy (Verified 02/03/18 14:24) Unknown lisinopril Adverse Reaction (Unknown, Verified 02/03/18 14:24) Cough Medications to take at Discharge Carvedilol [Coreg] 6.25 mg PO BID 01/02/16 Multivitamins,Therapeutic [Multivitamin] 1 tab PO DAILY 01/02/16 tramadol 50 mg tablet 50 mg PO Q8H PRN tab 05/13/17 amlodipine 10 mg tablet 5 mg PO QDAY tab 11/15/17 cyanocobalamin (vit B-12) 1,000 mcg capsule 1,000 mcg PO QDAY 11/15/17 Primary Care Physician: Benito Reynolds NP-C [Primary Care Provider] - Test Results: Test results from this visit will be discussed in further detail at your follow-up appointment, if applicable. Please Follow Up With: Jus Aguirre MD 02/08/18 1227 <Electronically signed by Jus Aguirre MD> Date Jus Aguirre MD CC: COGNOS ARCHITECT-Sima Reynolds OPERATIVE REPORT Observed: 02/08/2018 Status: F Source: [place] 12:26 PM [facility] REPOSITORY [facility] Medical Records Department [facility] [place] [address] Operative Report 02/08/18 1224 MR#: [id number] Acct: [id number] Name: SHEILA MURPHY Dillan Rep #: [id number] : 1935 82 From: Jus Aguirre MD PCP: CHINO Arevalo Status: REG SD Y Location: [place] [address] Report of Operation Date of Procedure: 02/08/18 Pre-Operative Diagnosis: Left kidney stones Post-Operative Diagnosis: The same Surgery/Procedure Performed:: Left extracorporeal shockwave lithotripsy Description of Surgical Findings:: 82-year-old male taken back to the operating room after smooth induction of general anesthesia he was placed supine on the table the stone in the upper pole of the left kidney was identified under fluoroscopy we used the movement of fluoroscopy to identify the stone of the lower pole stone seen on CAT scan was not visible on fluoroscopy. We then positioned the stone in the F2 focal point of the lithotripter machine and a total of 3000 shockwaves was delivered to the stone at a rate of initially 90 and then up to 120 at the end of the treatment cycle the stone had broken up fairly successfully did not see anything significant more fragments. Decided not to leave a stent. Patient's anesthetic was reversed and will see him back in a few weeks with an x-ray. Type of Anesthesia:: General Drains: none - Admit VTE Documentation VTE Present on Admission: No VTE Mechan Device Prophylaxis: SCD's VTE Pharm Prophylaxis ordered?: No 02/08/18 1226 <Electronically signed by Jus Aguirre MD> Date Jus Aguirre MD CC: COGNOS ARCHITECT-C Benito Reynolds; Jus Aguirre MD Signed ABDOMEN SINGLE VIEW Observed: 02/08/2018 Status: F Source: [place] 9:43 AM [facility] REPOSITORY [facility] Imaging Services [address] [place] [address] Abdomen Single View MR#: [id number] Acct: [id number] Name: SHEILA MURPHY Rep #: [id number] : 1935 M 82 From: Sergey Canchola MD PCP: CHINO Arevalo Status: REG [facility] Study: Abdomen Single View Date of Exam: 02/08/18 Exam# [id number] Ordering Dr: Jus Aguirre MD STUDY: X-RAY - ABDOMEN/PELVIS REASON FOR EXAM: Male, 82 years old. Pre-ESWL. TECHNIQUE: Two AP supine views of the abdomen and pelvis. COMPARISON: None. FINDINGS: Normal visualized lung bases. There is a moderate amount of colonic fecal material. Limited evaluation of the left kidney due to overlying fecal material. There are calcified phleboliths in the pelvis. There are diffuse degenerative changes of the visualized lumbar spine. RAD/Abdomen Single View IMPRESSION: Moderate amount of fecal material is seen in the colon. Limited assessment of the left kidney due to overlying fecal material. Electronically Signed: Sergey Canchola MD at 10:12 EDT Tel [phone], Service support , CC: COGNOS ARCHITECTJoanna Reynolds; Jus Aguirre MD Lead Presser: Signed ABDOMEN/PELVIS WITHOUT Observed: 01/28/2018 Status: F Source: [place] CONT 10:30 AM [facility] REPOSITORY [facility] Imaging Services [address] [place] [address] Abdomen/Pelvis without Cont MR#: [id number] Acct: [id number] Name: SHEILA MURPHY Rep #: [id number] : 1935 M 82 From: Aidan Vogel MD PCP: CHINO Arevalo Status: REG CLI Study: Abdomen/Pelvis without Cont Date of Exam: 01/28/18 Exam# [id number] Ordering Dr: Jus Aguirre MD STUDY: CT ABDOMEN AND PELVIS WITHOUT CONTRAST REASON FOR EXAM: Male, 82 years old. Hypertension RADIATION DOSAGE (If Supplied By Facility): CTDIvol = ( 8.08 ) mGy, DLP = ( 377.63 ) mGycm TECHNIQUE: Transaxial images were obtained from the dome of the diaphragm to the symphysis pubis without oral contrast, and without intravenous contrast. Sagittal and coronal images were reconstructed. Individualized dose optimization techniques were used for this CT. COMPARISON: None. FINDINGS: There is dependent atelectasis versus scar at bilateral lung bases. The visualized portions of the heart are within normal limits. Normal liver. Normal gallbladder and extrahepatic biliary system. Normal spleen. Normal pancreas. Normal bilateral adrenal glands. Normal right kidney. Calcifications within the left renal pelvis measuring up to 6 mm. No hydronephrosis. Normal ureters. Normal visualized stomach. Normal small intestine. Diverticular disease of the descending and sigmoid colonic segments without inflammation. The appendix is visualized and appears normal. Mild atherosclerotic calcification of the abdominal vasculature. Normal inferior vena cava. Normal retroperitoneum. Normal urinary bladder. Mild prostatomegaly. Normal abdominal wall. There are diffuse degenerative changes of the visualized lumbar spine. CT/Abdomen/Pelvis without Cont IMPRESSION: 1. Nonobstructing left renal calculi measuring up to 6 mm. 2. Descending and sigmoid colonic diverticulosis with no CT evidence of acute diverticulitis. Electronically Signed: Aidan Vogel MD at 11:37 EDT Tel , Service support , CC: CHINO Reynolds; Jus Aguirre MD Lead Presser: Signed XR SPINE LUMBOSACRAL 2 Observed: 12/16/2017 Status: F Source: [place] OR 3 VIEWS 10:11 AM [facility] [place] REPOSITORY ORIGINAL XR SPINE LUMBOSACRAL 2 OR 3 VIEWS CLINICAL STATEMENT: Lower Rib Cage Pain Left possible kidney stone. COMPARISON: 09/18/2013, CT abdomen and pelvis 11/02/2017 FINDINGS: A 4 mm calcification projects over the LEFT renal shadow, compatible with renal calculus. There are 5 nonrib-bearing lumbar vertebrae which demonstrate normal height and alignment. There is moderate to advanced narrowing of the L3/4, L4/5, and L5/S1 interspaces. Facet arthropathy is most prominent near the lumbosacral junction. Atherosclerotic calcification of the aorta is noted. IMPRESSION: No compression deformity or significant listhesis. Degenerative disc disease and facet arthropathy. Findings appear similar to the prior radiographs. Interpreted By: Deedee Kendrick MD Preliminary Report By: Deedee Kendrick MD Electronically Signed By: Deedee Kendrick MD Dictated Date: 12/16/2017 11:03:48 AM Prelim Date: 12/16/2017 11:03:48 AM Sign Date: 12/16/2017 11:06:42 AM XR SPINE LUMBOSACRAL 2 Observed: 12/16/2017 Status: F Source: [place] CA 3 VIEWS 10:11 AM [facility] [place] REPOSITORY ORIGINAL XR SPINE LUMBOSACRAL 2 OR 3 VIEWS CLINICAL STATEMENT: Lower Rib Cage Pain Left possible kidney stone. COMPARISON: 09/18/2013, CT abdomen and pelvis 11/02/2017 FINDINGS: A 4 mm calcification projects over the LEFT renal shadow, compatible with renal calculus. There are 5 nonrib-bearing lumbar vertebrae which demonstrate normal height and alignment. There is moderate to advanced narrowing of the L3/4, L4/5, and L5/S1 interspaces. Facet arthropathy is most prominent near the lumbosacral junction. Atherosclerotic calcification of the aorta is noted. IMPRESSION: No compression deformity or significant listhesis. Degenerative disc disease and facet arthropathy. Findings appear similar to the prior radiographs. Interpreted By: Deedee Kendrick MD Preliminary Report By: Deedee Kendrick MD Electronically Signed By: Deedee Kendrick MD Dictated Date: 12/16/2017 11:03:48 AM Prelim Date: 12/16/2017 11:03:48 AM Sign Date: 12/16/2017 11:06:42 AM XR SPINE THORACIC 2 Observed: 12/16/2017 Status: F Source: [place] 10:11 AM [facility] REPOSITORY ORIGINAL XR SPINE THORACIC 2 VIEWS CLINICAL STATEMENT: Lower Rib Cage Pain Left possible kidney stone. COMPARISON: None FINDINGS: No acute fracture or traumatic malalignment. The vertebral body heights are maintained. Disc space narrowing is noted within the mid to lower cervical spine as visualized on the swimmer's view. IMPRESSION: No compression deformity or significant listhesis. Interpreted By: Deedee Kendrick MD Preliminary Report By: Deedee Kendrick MD Electronically Signed By: Deedee Kendrick MD Dictated Date: 12/16/2017 11:01:57 AM Prelim Date: 12/16/2017 11:01:57 AM Sign Date: 12/16/2017 11:03:25 AM XR SPINE THORACIC 2 Observed: 12/16/2017 Status: F Source: [place] 10:11 AM [facility] REPOSITORY ORIGINAL XR SPINE THORACIC 2 VIEWS CLINICAL STATEMENT: Lower Rib Cage Pain Left possible kidney stone. COMPARISON: None FINDINGS: No acute fracture or traumatic malalignment. The vertebral body heights are maintained. Disc space narrowing is noted within the mid to lower cervical spine as visualized on the swimmer's view. IMPRESSION: No compression deformity or significant listhesis. Interpreted By: Deedee Kendrick MD Preliminary Report By: Deedee Kendrick MD Electronically Signed By: Deedee Kendrick MD Dictated Date: 12/16/2017 11:01:57 AM Prelim Date: 12/16/2017 11:01:57 AM Sign Date: 12/16/2017 11:03:25 AM CARDIOLOGY VISIT Observed: 11/17/2017 Status: F Source: [place] REPORT 2:06 PM [facility] REPOSITORY [facility] [address] [place] [address] OFFICE VISIT Date of Service: 11/17/17 MR#: [id number] Acct: [id number] Name: SHEILA MURPHY Rep #: [id number] : 1935 Provider: Christ Mcneill MD Age/Sex: 82/M Location[place] [facility] Status: Signed HPI HPI Chief Complaint: Follow-up visit. Details: SHEILA MURPHY, is a 82 M who presents to the office today for a follow-up visit. He is a gentleman with a history of nonischemic cardiomyopathy hypertension who had been doing well he did have a cardiac catheterization in December 2015 we did not demonstrate any obstructive coronary disease. In October of this year he started complaining of abdominal pain primarily on his left side it was significant enough that he was transferred to [facility] and was evaluated. He says that they did not come up within diagnosis he is also had significant bruising. He is denied any neck arm or jaw discomfort suggest angina no dizziness no diaphoresis no near syncope or syncope. He did have blood work copies of which I have from October 2017 which demonstrated a normal creatinine level of 1.2 normal electrolytes normal platelets as well as CBC. His last lipid profile was 135 with an HDL of 44 and an LDL of 72. He has had some shortness of breath with exertion as well as palpitations but his last EKG demonstrated normal sinus rhythm with a rate of 70 bpm. This was on November 09, 2017. His physical exam today demonstrates clear lung gotti regular rate and rhythm and no pedal edema his blood pressure is under good control. 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 Accompanied by: Is patient in pain?: No Allergies propoxyphene [From Darvon] Allergy (Verified 11/17/17 13:47) Unknown lisinopril Adverse Reaction (Unknown, Verified 11/17/17 13:47) Cough Medications Albuterol Aerosols [Ventolin Aerosols] 2.5 mg INHALATION Q4HWA.RT 04/08/14 [History Confirmed 11/17/17] Aspirin [Aspirin, Baby] 81 mg PO DAILY@0800 04/08/14 [History Confirmed 11/17/17] Carvedilol [Coreg] 6.25 mg PO BID 01/02/16 [History Confirmed 11/17/17] Multivitamins,Therapeutic [Multivitamin] 1 tab PO DAILY 01/02/16 [History Confirmed 11/17/17] tramadol 50 mg tablet 50 mg PO Q8H PRN tab 05/13/17 [History Confirmed 11/17/17] amlodipine 10 mg tablet 5 mg PO QDAY tab 11/15/17 [History Confirmed 11/17/17] cyanocobalamin (vit B-12) 1,000 mcg capsule 1,000 mcg PO QDAY 11/15/17 [History Confirmed 11/17/17] Ejection fraction %: 50 to 54 PFSH Medical History Systolic CHF (Chronic) Essential (primary) hypertension (Chronic) Benign essential hypertension (Chronic) Chronic ischemic heart disease (Chronic) COPD (chronic obstructive pulmonary disease) (Chronic) GERD (gastroesophageal reflux disease) (Chronic) HLD (hyperlipidemia) (Chronic) DALY (dyspnea on exertion) (Chronic) Fatigue (Chronic) Ventricular bigeminy (Acute) Renal failure (Acute) Hypomagnesemia (Acute) Hypercalcemia (Acute) Osteoarthritis (Chronic) Surgical History H/O right heart catheterization (Chronic) History of left heart catheterization (Chronic) Family History Brother Colon cancer Lung cancer CAD (coronary artery disease) Son Alcoholism Social History Smoking Status: Former smoker alcohol intake: never substance use type: does not use caffeine: Yes Type: coffee Number of servings: 2 what type of physical activity do you participate in: none seatbelt use: always do you feel safe at home: Yes ROS Const Const: Negative for fatigue, weakness, night sweats, excessive sweating, frequent falls, headache(s) or daytime sleepiness Eyes Eyes: Negative for loss of peripheral vision, transient loss of vision, blind spots, double vision or blurry vision ENT ENT: Positive for dizziness; negative for headache(s), balance problems, Nosebleed/epistaxis, tongue swelling or lip swelling Cardio Chest Pain: No Palpitations: No Edema: None Muscle aches with walking: None Resp Respiratory: Positive for SOB at rest and SOB with activity; negative for SOB orthopnea\SOB lying down, Cough or paroxysmal nocturnal dyspnea GI GI: Negative nausea, vomiting, heartburn, black,tarry stools or bright, red blood in stools : Negative for hematuria Musc Musc: Negative for balance problems, muscle aches/ myalgia, muscle weakness or joint pain Skin Skin: Negative non-healing lesions, unusual bruising or rash Neuro Neuro: Positive for dizziness and lightheadedness; negative for weakness, frequent falls, headache(s), double vision, orthostatic symptoms, blurry vision or lack of coordination Jae Hematologic/Lymphatic: Negative for easy bruising or easy bleeding Endo Endo: Negative for fatigue, excessive sweating, cold intolerance, heat intolerance, increased thirst/drinking or hair loss Psych Psych: Negative for anxiety or depression Allergy Allergy/Immunology: Negative for throat swelling, Negative for tongue swelling, Negative for hives, Negative for rash, Negative for lip swelling Cardiology Exam Const Appearance: cooperative, healthy appearing, well developed, well groomed and no acute distress Nutritional Appearance: well nourished and average body habitus Orientation: alert, awake and oriented x3 Head Head: normal to inspection, normocephalic and atraumatic Ears: hearing grossly normal bilaterally and external ears normal Nose: external nose normal, nasal mucous membranes and turbinates normal, nares normal, septum normal, no nasal discharge Face and Sinus: face symmetric Mouth: oral mucosae normal, tongue normal, oropharynx normal and moist mucous membranes Teeth and gingiva: dentition normal Throat: posterior oropharynx normal, tonsils normal and uvula midline Eyes General: appearance normal, both eyes and all related structures Eyelids: eyelids normal Conjunctivae: conjunctivae normal Pupils: PERRL, normal by confrontation and accommodation normal EOM: EOM intact bilaterally Neck Neck: normal visual inspection, trachea midline and no JVD JVD: +5 Carotids: normal carotid upstroke and bounding pulses Chest Chest inspection: normal inspection of the chest, symmetric chest movement and normal respiratory effort Auscultation: Bilateral: Clear to Auscultation Cardio Palpation: normal PMI Rate: regular rate Rhythm: regular rhythm Heart sounds: S1 normal, S2 normal and normal, physiologic split S2; negative rub, gallop or murmur GI GI: normal to inspection, soft, no hepatosplenomegaly and bowel sounds present Neuro General: alert, awake, oriented x3, no focal sensory deficit, gait normal and moves all extremities Skin Skin: no rashes or lesions noted Extremities Pulses: Normal: Right Femoral Pulse, Left Femoral Pulse, Right Dorsalis Pedis Pulse, Left Dorsalis Pedis Pulse, Right Posterior Tibial Pulse, Left Posterior Tibial Pulse, Right Radial Pulse, Left Radial Pulse Lower Extremity Edema: None: Bilateral Musculoskel Musculoskeletal: No joint tenderness Psych Psychological: normal affect Assessment AND Plan 1. Non-ischemic cardiomyopathy I42.8 Plan He does have a history of nonischemic cardiomyopathy. He is on the carvedilol and amlodipine which he is tolerating well. The lisinopril gave him a cough. My recommendation would be to continue the same medications without making any changes at this time. At his next visit we could perhaps consider switching him to losartan from the amlodipine. 2. Essential (primary) hypertension I10 Plan His blood pressure appears to be under good control on the current medical therapy and as noted above no changes will be made. He does not have any evidence of obstructive coronary disease and with regard to his bruising I will suggest that we discontinue his aspirin at this particular time. Plan Detail Follow Up 6 Months (r) Coding Level of Care Code Off vis,est,level 4 Diagnoses Non-ischemic cardiomyopathy I42.8 Essential (primary) hypertension I10 Coding Level of Care Code Off vis,est,level 4 Diagnoses Non-ischemic cardiomyopathy I42.8 Essential (primary) hypertension I10 11/17/17 1406 <Electronically signed by Christ Mcneill MD> Date Christ Mcneill MD Cosigner Signature: Date (if applicable) CC: COGNOS ARCHITECT-C Benito Reynolds CT ABDOMEN/PELVIS Observed: 11/02/2017 Status: F Source: JAY[facility]REE W/CONTRAST 1:30 PM [facility] REPOSITORY ORIGINAL CT ABDOMEN/PELVIS W/CONTRAST CLINICAL STATEMENT: ABD PAIN LLQ TENDERNESS WITH REBOUND TENDERNESS COMPARISON: None FINDINGS: This exam was performed according to our departmental dose- optimization program which includes automated exposure control, adjustment of the mA and/or kVp according to patient size and/or use of iterati ve reconstruction technique where applicable. No filling defects seen in the bladder. The prostate gland is enlarged. Colonic diverticulosis noted. There is no definite inflammation of the colon. The appendix is normal. The small bowel appears normal in caliber. The gastric antrum is inadequately distended. Moderate atherosclerosis seen of the abdominal and pelvic vasculature. The heart is normal in size. The lung bases appear clear. No suspicious findings seen of the liver. No filling defect identified in the gallbladder. The pancreas and adrenal glands are grossly unremarkable. No suspicious findings seen of the RIGHT kidney. LEFT renal calculus measuring 5 mm noted. No suspicious LEFT renal lesions. No destructive osseous lesion identified. Degenerative changes seen of the hips, sacroiliac joints and spine. IMPRESSION: 1. Diverticulosis. No focal inflammation 2. Nonobstructing LEFT renal calculus 3. Other incidental findings, as above Interpreted By: Kayden Main MD Preliminary Report By: Kayden Main MD Electronically Signed By: Kayden Main MD Dictated Date: 11/02/2017 3:31:41 PM Prelim Date: 11/02/2017 3:31:41 PM Sign Date: 11/02/2017 3:37:33 PM CBC Collected: 10/28/2017 Status: F Source: [facility] 8:54 AM [facility] REPOSITORY TYPE CODE TESTS RESULT OUT OF REFERENCE UNITS RANGE LAB WBC(LOINC) 4.60-10.80 10 3/mcL WBC 7.00 LAB RBCCT(LOINC 4.04-6.13 10 6/mcL ) RBC 4.41 LAB HGB(LOINC) 14.0-18.0 G/dL Hgb 14.3 LAB HCT(LOINC) 42.0-52.0 % Low Hct 39.8 LAB MCV(LOINC) 80.0-94.0 fL MCV 90.4 LAB MCH(LOINC) 27.0-31.2 pg High MCH 32.4 LAB MCHC(LOINC) 31.8-35.4 G/dL High MCHC 35.8 LAB RDW(LOINC) 11.5-14.5 % High RDW 14.6 LAB PLT(LOINC) 130-400 10 3/mcL Platelet 251 LAB MPV(LOINC) 7.4-10.4 fL Low MPV 7.2 Performed By: #### CBC, ADIFF, ANEU, PSA, A1C, GFR, CMP, LIPID #### [address] [address] .AUTO DIFF Collected: 10/28/2017 Status: F Source: [facility] 8:54 [facility] REPOSITORY TYPE CODE TESTS RESULT OUT OF REFERENCE UNITS RANGE LAB OSIRIS(LOINC) 37.0-80.0 % Neutrophil % 72.9 LAB LYM(LOINC) 10.0-50.0 % Lymphocyte % 15.1 LAB MON(LOINC) 1.7-13.0 % Monocyte % 7.8 LAB EO(LOINC) 0.0-7.0 % Eosinophil % 3.7 LAB BAS(LOINC) 0.0-2.5 % Basophil % 0.5 LAB ABLYM(LOIN 0.77-3.85 10 3/mcL C) Lymphocyte, 1.10 Absolute LAB TEO(LOINC 0.15-1.00 10 3/mcL ) Monocyte, 0.50 Absolute LAB AEOS(LOINC 0.00-0.40 10 3/mcL ) Eosinophil, 0.30 Absolute LAB ABAS(LOINC 0.00-0.19 10 3/mcL ) Basophil, 0.00 Absolute Performed By: #### CBC, ADIFF, ANEU, PSA, A1C, GFR, CMP, LIPID #### [address] [address] .NEUABS Collected: 10/28/2017 Status: F Source: [facility] 8:54 AM [facility] REPOSITORY TYPE CODE TESTS RESULT OUT OF REFERENCE UNITS RANGE LAB ANEU(LOINC) 2.85-6.16 10 3/mcL Neutrophil, 5.10 Absolute Performed By: #### CBC, ADIFF, ANEU, PSA, A1C, GFR, CMP, LIPID #### [address] [address] PSA Collected: 10/28/2017 Status: F Source: [facility] 8:54 AM [facility] REPOSITORY TYPE CODE TESTS RESULT OUT OF REFERENCE UNITS RANGE LAB PSA(LOINC) 0.00-4.00 ng/mL Prostate 2.16 Specific Antigen Performed By: #### CBC, ADIFF, ANEU, PSA, A1C, GFR, CMP, LIPID #### [address] [address] A1C Collected: 10/28/2017 Status: F Source: [facility] 8:54 AM [facility] REPOSITORY TYPE CODE TESTS RESULT OUT OF RANGE REFERENCE UNITS LAB A1C(LOINC) 4.8-5.9 % Hgb A1c 5.3 Performed By: #### CBC, ADIFF, ANEU, PSA, A1C, GFR, CMP, LIPID #### [address] [address] .GFR Collected: 10/28/2017 Status: F Source: [facility] 8:54 AM [facility] REPOSITORY TYPE CODE TESTS RESULT OUT OF REFERENCE UNITS RANGE LAB GFRAA(LOINC ml/min/1.73 ) sqm GFR 71 Irish Result Comment: GFR Population mean for , Non- Americans Ages 20-29 = 116 mL/min/1.73 sq.m. Ages 30-39 = 107 mL/min/1.73 sq.m. Ages 40-49 = 99 mL/min/1.73 sq.m. Ages 50-59 = 93 mL/min/1.73 sq.m. Ages 60-69 = 85 mL/min/1.73 sq.m. Ages 70+ = 75 mL/min/1.73 sq.m. Chronic Kidney Disease: Less than 60 mL/min/1.73 square meters End Stage Renal Disease: Less than 15 mL/min/1.73 square meters LAB GFRNO(LOINC) ml/min/1.73sqm GFR Non- 58 Result Comment: GFR Population mean for , Non- Americans Ages 20-29 = 116 mL/min/1.73 sq.m. Ages 30-39 = 107 mL/min/1.73 sq.m. Ages 40-49 = 99 mL/min/1.73 sq.m. Ages 50-59 = 93 mL/min/1.73 sq.m. Ages 60-69 = 85 mL/min/1.73 sq.m. Ages 70+ = 75 mL/min/1.73 sq.m. Chronic Kidney Disease: Less than 60 mL/min/1.73 square meters End Stage Renal Disease: Less than 15 mL/min/1.73 square meters Performed By: #### CBC, ADIFF, ANEU, PSA, A1C, GFR, CMP, LIPID #### [address] [address] CMP Collected: 10/28/2017 Status: F Source: [facility] 8:54 AM [facility] REPOSITORY TYPE CODE TESTS RESULT OUT OF REFERENCE UNITS RANGE LAB GLU(LOINC) 83-110 mg/dL Glucose High Level 118 LAB NA(LOINC) 136-146 mEq/L Sodium Level 136 LAB K(LOINC) 3.5-5.1 mEq/L Potassium Level 4.2 LAB CL(LOINC) 98-107 mEq/L Chloride 100 LAB CO2(LOINC) 23-31 mEq/L CO2 24 LAB EBAL(LOINC mEq/L ) Electrolyte Balance 12.0 LAB BUN(LOINC) 7.0-18.0 mg/dL BUN 14.8 LAB CRE(LOINC) 0.6-1.2 mg/dL Creatinine Lvl (s) 1.2 LAB BC(LOINC) 7-27 ratio BUN/Creatinine 12 Ratio LAB CA(LOINC) 8.4-10.2 mg/dL Calcium Lvl 9.7 LAB PROT(LOINC 6.0-8.3 G/dL ) Total Protein 6.6 LAB ALB(LOINC) 3.4-4.8 G/dL Albumin Level 4.1 LAB GLB(LOINC) G/dL Globulin 2.5 LAB AG(LOINC) 1.1-2.5 ratio A/G Ratio 1.6 LAB BILT(LOINC 0.2-1.0 mg/dL ) Bili Total 0.8 LAB AP(LOINC) 40-135 IU/L Alk Phos 91 LAB AST(LOINC) 10-40 IU/L AST/SGOT 19 LAB ALT(LOINC) 10-35 IU/L ALT/SGPT 12 Performed By: #### CBC, ADIFF, ANEU, PSA, A1C, GFR, CMP, LIPID #### [address] [place], [place] [address] LIPID Collected: 10/28/2017 Status: F Source: [facility] 8:54 AM [facility] REPOSITORY TYPE CODE TESTS RESULT OUT OF REFERENCE UNITS RANGE LAB CHOL(LOINC 131-200 mg/dL ) Cholesterol 135 Result Comment: Cholesterol Reference Interval: Less than 200 Desirable 200-239 Borderline high risk 240 and above High risk LAB TRIG(LOINC) 40-150 mg/dL Triglycerides 93 Result Comment: Triglyceride Reference Interval: Less than 150 Normal 150-199 Borderline high risk 200-499 High risk 500 or higher Very high risk LAB HD(LOINC) 35-90 mg/dL HDL Cholesterol 44 Result Comment: HDL Reference Interval: Less than 40 Low - high risk 60 or above Optimal/lowers risk LAB LDL(LOINC) 0-130 mg/dL LDL Cholesterol 72 Result Comment: LDL is a calculated result and requires a 12-hr fast. LDL Reference Interval: Less than 100 Optimal 100-129 Near or above optimal 130-159 Borderline high risk 160-189 High risk 190 and above Very high risk Performed By: #### CBC, ADIFF, ANEU, PSA, A1C, GFR, CMP, LIPID #### [address] [place], [place] [address] XR FLUORO GUIDANCE FOR Observed: 10/06/2017 Status: F Source: [facility] THERAPY INJECTION 11:50 AM [facility] REPOSITORY ORIGINAL Images acquired, not reported on this accession number. XR FLUORO GUIDANCE FOR Observed: 09/01/2017 Status: F Source: [facility] THERAPY INJECTION 9:37 AM [facility] REPOSITORY ORIGINAL Images acquired, not reported on this accession number. ALLERGIES ALLERGIES DATE TYPE / CODE NAME / CODE REACTION SEVERITY SOURCE 05/23/2018 Drug lisinopril/F cough Unknown [facility] Allergy/4160 [id number](RX Hospital 79278(SNOMED NORM) Repository CT) 05/23/2018 Drug propoxyphene Unknown Unknown [facility] Allergy/4160 /[id number]( Hospital 33345(SNOMED RXNORM) Repository CT) ENCOUNTERS ENCOUNTERS ADMIT/DISCHARGE ACCOUNT NUMBER ADMITTING ENCOUNTER LOCATION SOURCE CLASS 06/08/2018/06/08/19 [id number] Ambulatory BBuilding:OS Jayashree 19 DURoom: Health 0001Bed: F [facility] Repository 06/06/2018 [id number] Ambulatory [facility] ding:RAD Repository 05/23/2018/05/23/19 [id number] Ambulatory BMSBuilding: Nela 19 BMS.[facility] Repository 04/04/2018 [id number] Ambulatory ABuilding:PM Jayashree C [facility] Emergency Department Repository 03/07/2018/03/07/20 [id number] Ambulatory JAYASHREE [address] ding:RAD [facility] Repository 02/28/2018 [id number] Ambulatory [facility] ding:RAD Repository 02/19/2018/02/20/20 [id number] Emergency BBuilding:ER Jayashree 18 O [facility] Emergency Department Repository 02/17/2018/02/18/20 [id number] Emergency [address] ding:ED Repository 02/13/2018/02/15/20 [id number] CRALA JOHNSON, Ambulatory BBuilding:MS Jayashree 18 CHON URRoom: Health 0236Bed: A [facility] Repository 02/08/2018/02/09/20 [id number] Ambulatory Nela[address] ding:SDCRoom Repository : AC16 01/28/2018 [id number] Ambulatory [facility] ding:CT Repository 12/16/2017/12/17/19 [id number] Ambulatory [address] ding:RAD [facility] Repository 11/17/2017/11/18/19 [id number] Ambulatory BMSBuilding: [place] 18 BMS.[facility] Repository 11/15/2017 [id number] Ambulatory BMSBuilding: Nela BMS.G [facility] Repository 11/02/2017/11/03/19 [id number] Ambulatory JAYASHREE Jayashree [address] [place] [address] ding:RAD [facility] Repository 10/31/2017/11/01/19 [id number] Ambulatory JAYASHREE Jayashree [address] [place] [address] ding:RESP [facility] Repository 10/28/2017/10/29/19 [id number] Ambulatory JAYASHREE Jayashree [address] [place] [address] ding:OLAB [facility] Repository 10/06/2017/10/07/19 [id number] Ambulatory BBuilding:OS Jayashree 18 DURoom: Health 0001Bed: D [facility] Repository 09/01/2017/09/02/19 [id number] Ambulatory BBuilding:OS Jayashree 18 DURoom: Health 0001Bed: G [facility] Repository 07/21/2017/07/22/19 [id number] Ambulatory BBuilding:OS Jayashree 18 DURoom: Health 0001Bed: F [facility] Repository 06/30/2017/06/30/19 [id number] Ambulatory BBuilding:OS Jayashree 18 DURoom: Health 0001Bed: F [facility] Repository PAYERS PAYERS ENCOUNTER GUARANTOR PAYER SUBSCRIBER SOURCE 06/08/2018 SHEILA Grimaldo Primary Insurance:[facility] BAUGHMANDOB: MEDICARE HMO AMEPolicy BAMOYMANDOB: [facility] [id number] Number: [id number] [place], [place] Date:2018-06-06 - [place], [place] [address]Ueh: [phone] [id number] Name:[facility] [address]Cyi: () [address], [place] [phone]: [phone] () [phone] () 06/06/2018 SHEILA Grimaldo Primary Insurance:[facility] SHEILA Rondon [id number] [facility] Number: BAUGHMANDOB: [facility] [id number], [place] Date:3421-15-63FN BOX Repository [address]Qcl: [phone] [place] [phone] (HP) [phone]: 06/06/2018 Secondary NOT GIVENUNK [place] Insurance:SELF PAY Community INSURANCEPolicy Number: Hospital Effective Repository Date:2018-05-29 05/23/2018 SHEILA A Primary Insurance:AETNA SHEILA Grimaldo [place] [id number] [facility] Number: BAUGHMANDOB: Community [facility]BFHQMBEffective [id number], [place] Date:1932-36-34FR BOX Repository [address]Rnd: [phone] [place] [phone] (HP) [phone]: 05/23/2018 Secondary NOT GIVENUNK [place] Insurance:SELF PAY Community INSURANCEPolicy Number: Hospital Effective Repository Date:2018-05-23 04/04/2018 SHEILA A Primary Insurance:AETNA SHEILA Grimaldo Jayashree FTRANS [facility]ENTERMANDOB: MEDICARE O AMEPAlbany Medical CenterMANDOB: [facility] Number: [id number] Repository [place], [place] Date:2017-06-02 - [place], [place] [address]Qlu: [phone] [id number] Name:[facility] [address]Njg: () [address]Sc[place], [place] [phone]: [phone]) () [phone] () 03/07/2018 SHEILA A Primary Insurance:AETNA SHEILA Dillan [facility] BAMOYMANDOB: MEDICARE HMO AMEPolicy [facility]ENTER[facility]ANDOB: [facility] [id number] Number: [id number] Repository [place], [place] Date:2018-03-07 [place], [place] [address]Vms: [phone] [id number] Name:[address] [address]Fki: (HP) [address], [place] [phone]: [phone]) (HP) [phone] (WP) 02/28/2018 SHEILA A Primary Insurance:AETNA SHEILA Grimaldo [place] [id number] [facility] Number: BAUGHMANDOB: [facility] [id number], [place] Date:5648-58-62UN BOX Repository [address]Hmr: [phone] [place], [place] [phone] (HP) [phone]: 02/28/2018 Secondary NOT GIVENUNK [place] Insurance:SELF PAY Community INSURANCEPolicy Number: Hospital Effective Repository Date:2018-02-28 02/19/2018 SHEILA A Primary Insurance:TNA SHEILA Grimaldo [facility]EMANDOB: MEDICARE O [facility]AMER[facility] GUTHRIEMANDOB: [facility] Number: [id number] [place], [place] Date:2018-02-19 [place], [place] [address]Ofw: [phone] [id number] Name:NPO [address]Tlg: () [address]Hp[place], [place] [phone]: [phone]) (HP) [phone] (WP) 02/17/2018 SHEILA A Primary Insurance:AETNA SHEILA [place] [id number] [facility] Number: BAUGHMANDOB: [facility] [id number], [place] Date:7078-58-30AA BOX Repository [address]Qpo: [phone] [place], [place] [phone] (HP) [phone]: 02/17/2018 Secondary NOT GIVENUNK Nela Insurance:SELF PAY Community INSURANCEPolicy Number: Hospital Effective Repository Date:2018-02-17 02/13/2018 SHEILA A Primary Insurance:AETNA SHEILA Grimaldo [facility] IHSANMANDOB: MEDICARE HMO AMEPolicy IHSANMANDOB: [facility] [id number] Number: [id number] Repository [place], [place] Date:2018-02-13 [place], [place] [address]Paq: [phone] [id number] Name:NPO [address]Mno: () [address], [place] [phone]: [phone] () [phone] () 02/08/2018 SHEILA A Primary Insurance:AETNA SHEILA Grimaldo [place]lea [id number] [facility] Number: BAUGHMANDOB: [facility] [id number], [place] Date:5819-74-84DL BOX Repository [address]Nto: [phone] [place]ILL, [place] [phone] () [phone]: 02/08/2018 Secondary NOT GIVENUNK [place] Insurance:SELF PAY Community INSURANCEPolicy Number: Hospital Effective Repository Date:2018-01-30 01/28/2018 SHEILA A Primary Insurance:AETNA SHEILA [place] [id number] [facility] Number: BAUGHMANDOB: [facility] [id number], [place] Date:9899-80-96DB BOX Repository [address]Nkx: [phone] [place], [place] [phone] () [phone]: 01/28/2018 Secondary NOT GIVENUNK [place] Insurance:SELF PAY Community INSURANCEPolicy Number: Hospital Effective Repository Date:2018-01-10 12/16/2017 SHEILA A Primary Insurance:AETNA SHEILA Dillan [facility] IHSANMANDOB: MEDICARE HMO AMEPolicy IHSANMANDOB: [facility] Number: [id number] Repository [facility]ITALEffect[place], [place] Date:2017-12-16 - [place], [place] [address]Rfw: [phone] [id number] Name:NPO [address]Muu: () [address]Sj[place], [place] [phone]: [phone]) (HP) [phone] () 11/17/2017 SHEILA A Primary Insurance:AETNA SHEILA CHAMPAGNEMAN857 [facility] HOSPITALOPoly Number: BAUGHMANDOB: [facility]BESOUTHEAST COLOR[facility] HOSPITALQEffectsan juan hospital [id number], [place] Date:5842-45-80EU BOX Repository [address]Rad: [phone] [place], [place] [phone] () [phone]: 11/17/2017 Secondary NOT GIVENUNK [place] Insurance:SELF PAY Community INSURANCEPolicy Number: Hospital Effective Repository Date:2017-11-17 11/15/2017 SHEILA A Primary Insurance:AETNA SHEILA CHAMPAGNEMAN857 [facility] Number: BAUGHMANDOB: [facility] TRIBEALMSHOUSE SAN FRANCISCOALEXQGLYNNEffective [id number], [place] Date:4321-13-96JW BOX Repository [address]Lhy: [phone] HILL, [place] [phone] () [phone]: 11/15/2017 Secondary NOT GIVENUNK [place] Insurance:SELF PAY Community INSURANCEPolicy Number: Hospital Effective Repository Date:2017-11-15 11/02/2017 SHEILA A Primary Insurance:AETNA SHEILA Grimaldo [facility] BAMOYMANDOB: MEDICARE HMO AMEPolicy BAUGHMANDOB: [facility] Number: [id number] Repository [facility]EffectNash[place], [place] Date:2017-10-27 - [place], [place] [address]Qeu: [phone] [id number] Name:NPO [address]Ths: (HP) [address] [place] [address] [phone]: [phone]) (HP) [phone] (WP) 10/31/2017 SHEILA A Primary Insurance:T SHEILA Grimaldo [facility]EMANDOB: MEDICARE HMO AMEPolicy [facility]AMERCY [facility] GUTHRIEMANDOB: [facility] Number: [id number] Repository [facility] MEBFHQMBEffective [facility], [place] Date:2017-10-27 - [place], [place] [address]Dfp: [phone] Name:NPO [address]Ici: (HP) [address] [place] [address] [phone]: [phone]) (HP) [phone] (WP) 10/28/2017 SHEILA A Primary Insurance:[facility] SHEILA Grimaldo [facility]: MEDICARE HMO AMEPamsterdam memorial hospitaly [facility]AMERCY [facility] GUTHRIEMANDOB: [facility] Number: [id number] Repository [place] MEBFHQMBEffective [facility], [place] Date:2017-10-28 - [place], [place] [address]Jix: [phone] [id number] Name:NPO [address]Emf: (HP) [address] [place] [address] [phone]: [phone]) (HP) [phone] (WP) 10/06/2017 SHEILA A Primary Insurance:[facility] Grimaldo [facility] HospitalMANDOB: MEDICARE HMO AMEPamsterdam memorial hospitaly [facility]MANDOB: [facility] Number: [id number] Repository [facility] MEBFQMBEffective [facility], [place] Date:2017-09-28 [place], [place] [address]Vmf: [phone] Name:NPO [address]Dar: (HP) [address] [place] [address] [phone]: [phone]) (HP) [phone] (WP) 09/01/2017 SHEILA A Primary Insurance:T SHEILA Grimaldo [facility]EMANDOB: MEDICARE HMO AMEPolicy [facility]AMERCY [facility] GUTHRIEMANDOB: [facility] Number: [id number] Repository [place] MEBFHQMBEffective [facility], [place] Date:2017-08-25 [place], [place] [address]Zth: [phone] Name:NPO [address]Ovg: (HP) [address] [place] [address] [phone]: [phone]) (HP) [phone] (WP) 07/21/2017 SHEILA A Primary Insurance:[facility] SHEILA Grimaldo [facility] HospitalMANDOB: MEDICARE HMO AMEPamsterdam memorial hospitaly [facility]ENTERMANDOB: [facility] Number: [id number] Repository [place] MEBFHQMBEffective [facility] [facility], [place] Date:2017-07-12 [place], [place] [address]Yfe: [phone] [phone] Name:NPO [address]Jhp: (HP) [address] [place] [address] [phone]: [phone]) (HP) [phone] (WP) 06/30/2017 SHEILA A Primary Insurance:[facility] [facility] MEDIC[facility] H[facility] Number: [id number] Repository [facility] MEBFQMBEffect[facility], [place] Date:2017-06-22 - [place], [place] [address]Rls: [phone] [id number] Name:[facility] [id number]: () [id number] WANDA Nevarez [id number] [id number]: [phone] ()
== END ==
PROVIDERS: Family Provider Nurse Practitioner Family; PCP Nurse Practitioner Family; Referring Provider Urology; Visit Provider Urology
DX: N20.0 Calculus of kidney (principal)
CPT/HCPCS: 74018

== ENCOUNTER → 2019-03-29 10:34 | Outpatient (CLI) | payer MEDICARE, SELFPAY ==
[2018-12-07 08:46] VITALS: BMI 24.0
--- NOTE | 2019-03-29 10:36 | RAD_ITS ---
STUDY: X-RAY - ABDOMEN/PELVIS REASON FOR EXAM: Male, 83 years old. Patient states kidney stone on the left. TECHNIQUE: 1 view COMPARISON: Prior exam of June 06, 2018 FINDINGS: Normal visualized lung bases. There is an unremarkable bowel gas pattern. There is no demonstrated free abdominal air. There is at least one calcified granuloma of the spleen. No renal calcifications are identified. A calcification in the lower pole of the left kidney on the previous exam is not identified on the current exam. There are no definitive ureteral stones. There are numerous rounded globular calcifications of the pelvis consistent with phleboliths not substantially changed from the prior exam. Normal soft tissue structures. Normal visualized osseous structures. RAD/Abdomen Single View IMPRESSION: Renal and ureteral calcification is not identified on the current exam. Calcified granuloma of the spleen. Phleboliths of the pelvis. Electronically Signed: Debra Us MD at 17:12 EST , Service support ,
== END ==
PROVIDERS: Family Provider Nurse Practitioner Family; PCP Nurse Practitioner Family; Referring Provider Urology; Visit Provider Urology
DX: N20.0 Calculus of kidney (principal)
CPT/HCPCS: 74018

== ENCOUNTER → 2019-05-25 14:10 | Outpatient (CLI) | payer MEDICARE, SELFPAY ==
[2018-12-07 08:46] VITALS: BMI 24.0
--- NOTE | 2019-05-25 14:11 | RAD_ITS ---
STUDY: X-RAY - LUMBOSACRAL SPINE REASON FOR EXAM: Male, 83 years old. chronic low back pain TECHNIQUE: 6 view(s) of the lumbosacral spine were obtained. COMPARISON: None FINDINGS: Lumbar spine is intact and aligned with expected superimposed age-related change. The spine is radiographically stable between flexion and extension. Mineralization is normal. SI joints are intact. There are atherosclerotic ossifications in the aorta. RAD/L/S Spine w Bend Min 6 Vw IMPRESSION: Unremarkable age-appropriate degenerative lumbar spine. Electronically Signed: Stacy King, at 20:56 EST Tel , Service support ,
--- NOTE | 2019-05-25 14:15 | RAD_ITS ---
STUDY: X-RAY - THORACIC SPINE REASON FOR EXAM: Male, 83 years old. chronic back pain TECHNIQUE: 3 view(s) of the thoracic spine were obtained. COMPARISON: None. FINDINGS: Normal kyphosis of the thoracic spine. There is no substantial scoliosis. There is multilevel endplate spondylosis of the thoracic vertebrae. There is multilevel disc space narrowing of the thoracic spine. There is irregularity with slight decrease in vertebral body height at T11. This appears within normal limits on corresponding x-ray of the lumbar spine and therefore unlikely to represent acute fracture. Atherosclerotic disease of aorta seen. RAD/Thoracic Spine 3 Views IMPRESSION: Degenerative disease as described above with no acute fracture or subluxation. Electronically Signed: Renate Yang MD at 4:18 EST , Service support ,
[2019-05-25 15:50] LABS: Amphetamine Urine VISTA NEGATIVE (<1000 ng/mL); Barbiturate Urine VISTA NEGATIVE (< 200 ng/mL); Benzodiazepine Urine VISTA NEGATIVE (< 200 ng/mL); Cocaine Urine VISTA NEGATIVE (< 300 ng/mL); Ecstacy Urine VISTA NEGATIVE (< 500 ng/mL); Methadone Urine VISTA NEGATIVE (< 300 ng/mL); PCP Urine VISTA NEGATIVE (< 25 ng/mL); THC Urine VISTA NEGATIVE (< 50 ng/mL); Vista UDS pH Range 6
== END ==
PROVIDERS: Family Provider Nurse Practitioner Family; PCP Nurse Practitioner Family; Referring Provider Anesthesiology; Visit Provider Anesthesiology
DX: F11.20 Opioid dependence, uncomplicated (principal)
CPT/HCPCS: 72072; 72114; 80307

== ENCOUNTER → 2019-10-01 13:14 | Outpatient (CLI) | payer MEDICARE, SELFPAY ==
[2019-07-10 14:56] VITALS: BMI 24.0
--- NOTE | 2019-10-01 13:17 | CT_ITS ---
STUDY: CT THORACIC SPINE WITHOUT CONTRAST REASON FOR EXAM: Male, 84 years old. BACK PAIN RADIATION DOSAGE (If Supplied By Facility): CTDIvol = ( 32.59 ) mGy, DLP = ( 1083.46 ) mGycm TECHNIQUE: The patient was scanned in a multi detector CT scanner. High resolution imaging was performed. Images were obtained from C7 to L1. Sagittal and coronal images were reconstructed. Individualized dose optimization techniques were used for this CT. COMPARISON: X-ray 05/25/2019 FINDINGS: Normal visualized cervical spine. Normal kyphosis of the thoracic spine. There is no substantial scoliosis. Normal thoracic vertebrae and endplates. Normal disc spaces heights. The soft tissue structures are unremarkable. CT/Spine Thoracic without Contras IMPRESSION: Normal unenhanced CT examination of the thoracic spine. Electronically Signed: Benito Kaur MD at 14:17 EDT Tel , Service support ,
== END ==
PROVIDERS: PCP Nurse Practitioner Family; Referring Provider Anesthesiology; Visit Provider Anesthesiology
DX: M54.6 Pain in thoracic spine (principal)
CPT/HCPCS: 72128

== ENCOUNTER → 2019-11-22 13:24 | Outpatient (CLI) | payer MEDICARE, SELFPAY ==
[2019-07-10 14:56] VITALS: BMI 24.0
--- NOTE | 2019-11-22 13:30 | CT_ITS ---
STUDY: CT ABDOMEN AND PELVIS WITHOUT CONTRAST REASON FOR EXAM: Male, 84 years old. PT STATED HEMATURIA, R/O KS RADIATION DOSAGE (If Supplied By Facility): CTDIvol = ( 7.06 ) mGy, DLP = ( 379.45 ) mGycm TECHNIQUE: Transaxial images were obtained from the dome of the diaphragm to the symphysis pubis without oral contrast, and without intravenous contrast. Sagittal and coronal images were reconstructed. Individualized dose optimization techniques were used for this CT. COMPARISON: Comparison is made with prior study dated January 28, 2018. FINDINGS: Emphysematous changes seen at the lung bases. Focal area of scarring in the peripheral aspect of the lingular segment of the left upper lobe. The visualized portions of the heart are within normal limits. Normal liver. Normal gallbladder and extrahepatic biliary system. There are multiple benign calcified granulomata of the spleen. Borderline splenomegaly. Normal pancreas. There is a small, circumscribed, smooth, low attenuation left adrenal mass, consistent with an adrenal adenoma. This measures 1 cm. Normal right adrenal gland. Normal right kidney. There is a 5.6 mm nonobstructive calculus in the lower pole calyx of the left kidney. There is a small hiatal hernia. Normal small intestine. There are multiple colonic diverticula consistent with diverticulosis. The appendix is visualized and appears normal. There is diffuse atherosclerotic calcification of the abdominal aorta, without a demonstrated aneurysm. Normal inferior vena cava. Normal retroperitoneum. Normal urinary bladder. Phleboliths are seen within the pelvis. Normal abdominal wall. There are diffuse degenerative changes of the visualized lumbar spine. There is loss of the normal lumbar lordosis. CT/Abdomen/Pelvis without Cont IMPRESSION: 5.6 mm nonobstructive calculus in the lower pole calyx of the left kidney. Sigmoid diverticulosis. Electronically Signed: Sergey Canchola, at 14:14 EDT , Service support ,
== END ==
PROVIDERS: PCP Nurse Practitioner Family; Referring Provider Urology; Visit Provider Urology
DX: R10.84 Generalized abdominal pain (principal)
CPT/HCPCS: 74176